=== PATIENT | female | born 1960 | race Caucasian/White ===

== ENCOUNTER 2020-03-10 19:41 | Emergency (ER) | payer MEDICARE, SELFPAY ==
[2020-03-10 19:50] VITALS: BP 141/64; PULSE 75; RESP 20; TEMP 36.6; O2SAT 94; BMI 30.2
--- NOTE | 2020-03-10 20:00 | W.ED.GENADLT ---
HPI - General Adult General: Chief complaint: General Medical Stated complaint: FLUID IN BELLY Time Seen by Provider: 03/10/20 19:50 Source: patient Mode of arrival: ambulatory Limitations: no limitations History of Present Illness: HPI narrative: 59-year-old female who has a history of cirrhosis who states she gets paracentesis every other week. She is scheduled for one on but states she want to see if she could get down here. She states she has had slight abdominal pain but denies any respiratory distress. She denies any fever. Onset (ago): day(s) Associated symptoms: Deny chest pain, dyspnea, headache(s), nausea, rash or vomiting Review of Systems Const: Denies: fever, chills, body aches or change in appetite Eyes: Denies: blurry vision or eye discomfort ENMT: Denies: throat pain or dental pain Card: Denies: chest pain Resp: Denies: shortness of breath GI: Reports: abdominal pain; Denies: nausea, vomiting or diarrhea : Denies: painful urination Musc: Denies: neck pain or back pain Skin/Breast: Denies: rash Neuro: Denies: headache Psych: Denies: depression Lc/Lymph: Denies: easy bruising All/Imm: Denies: hives PFSH ED PFSH: Social History Smoking and tobacco status: current every day smoker Physical Exam Const: COMMON NORMALS: no apparent distress, oriented x3 and healthy appearing HENMT: COMMON NORMALS: normocephalic and head/scalp atraumatic HEAD & SCALP: normocephalic and atraumatic Eye: COMMON NORMALS: PERRL and EOMs intact bilaterally PUPIL: Yes PERRL Neck/C-Spine: COMMON NORMALS: full ROM and supple Chest: COMMONS NORMALS: inspection of chest normal and palpation of chest normal Resp: COMMON NORMALS: normal respiratory effort, no retractions, no use of accessory muscles and clear to auscultation bilaterally AUSCULTATION: clear to auscultation bilaterally Cardio: COMMON NORMALS: regular rate, regular rhythm and no murmurs RATE: regular rate RHYTHM: regular rhythm GI: COMMON NORMALS: non-tender OTHER: Ascites with no tense abdomen and in no distress and no tenderness Extremity: COMMON NORMALS: normal to inspection and full ROM Neuro: COMMON NORMALS: oriented x3, moves all extremities and no focal motor deficits Psych: COMMON NORMALS: mental status grossly normal, thought process normal and cooperative THOUGHT PROCESS: normal thought process Skin: COMMON NORMALS: no rashes or lesions noted and no wounds GENERAL SKIN EXAM: no rashes or lesions noted Course Vital Signs: Vital signs: Vital Signs Temperature 97.8 F 03/10/20 19:50 Pulse Rate 75 03/10/20 19:50 Respiratory Rate 20 H 03/10/20 19:50 Blood Pressure 141/64 03/10/20 19:50 Pulse Oximetry 94 03/10/20 19:50 MDM - General Adult MDM Narrative: Medical decision making narrative: Patient presents here with ascites that is chronic in nature. She is in no distress and has no sign of SBP. I do not believe she needs an emergent paracentesis. She refused any lab draw. Patient is to follow-up with her physician on for paracentesis. She is to return if worsening. Discharge Plan Discharge Patient Disposition: Home, Self-Care Clinical Impression: Abdominal ascites Qualifiers: Ascites type: other type Qualified Code(s): R18.8 - Other ascites Condition: Stable Prescriptions: No Action nifedipine 90 mg Tablet Extended Release 90 mg PO DAILY RF: 0 metoprolol tartrate 100 mg Tablet 200 mg PO BID RF: 0 Glucosamine 500 mg Tablet 500 mg PO DAILY RF: 0 Discharge Orders: Discharge Order (Routine); Ordered 03/10/20 Ordered By: Juwan Oconnell Discharge Diet: Advance as tolerated Discharge Activity: Resume usual activity Patient Instructions: Ascites (ED) Coding Level of Care Code ED [employer] for [facility] Toro
[2020-03-10 20:09] VITALS: RESP 18
[2020-03-10] MEDS: FUROsemide 10 mg/mL SDV 10mL 60 MG IV (20:09)
[2020-03-10] MEDS: morphine 4 mg/mL SDV 1 mL IM (20:09)
[2020-03-10 20:35] VITALS: BP 136/65; PULSE 67; RESP 18; O2SAT 96
== END 2020-03-10 20:35 | disposition home or self-care (01) ==
LOC: ER 20:46
PROVIDERS: Emergency Provider Emergency Medicine
DX: R18.8 Other ascites (principal); F17.210 Nicotine dependence, cigarettes, uncomplicated
CPT/HCPCS: 12345; 96372; 96374; 99281; 99283; J1940; J2270

== ENCOUNTER 2020-03-18 10:45 | Emergency (ER) | payer MEDICARE, MEDICAID, SELFPAY ==
[2020-03-18 10:58] VITALS: BP 170/78; PULSE 71; RESP 20; TEMP 36.6; O2SAT 99; BMI 30.2
--- NOTE | 2020-03-18 11:43 | W.ED.GENADLT ---
HPI - General Adult General: Chief complaint: General Medical Stated complaint: NEEDS UNSCHEDULED PARACENTESIS Time Seen by Provider: 03/18/20 11:19 History of Present Illness: HPI narrative: 59-year-old female presents emergency room with complaint of ascites. She is scheduled in 2 days to get a paracentesis. She having increasing difficulty breathing and wanted to get it done earlier she has no chest pain. She has a history of hepatitis C and end-stage renal disease. She has not had any fever sweats chills cough cold she not had any other specific complaints or problems associated with this. Associated symptoms: Reports dyspnea; Deny chest pain, malaise, nausea, rash or vomiting Review of Systems Const: Denies: fever, chills, body aches, change in appetite, fatigue or malaise ENMT: Denies: throat pain, ear pain, nasal discharge or nasal congestion Card: Denies: chest pain, edema, shortness of breath on exertion or shortness of breath when lying down Resp: Reports: shortness of breath; Denies: productive cough or non-productive cough GI: Reports: feeling full early; Denies: abdominal pain, nausea, vomiting, vomiting blood, coffee grounds in vomit, diarrhea, constipation, bloating, blood in stool or black tarry stool : Denies: flank pain, difficulty urinating, painful urination, urinary frequency or urinary urgency Skin/Breast: Denies: rash or itching PFSH ED PFSH: Social History Smoking and tobacco status: current every day smoker Physical Exam Const: COMMON NORMALS: no apparent distress GENERAL APPEARANCE: cooperative and comfortable ORIENTATION/CONSCIOUSNESS: Yes awake, Yes oriented to person, Yes oriented to place and Yes oriented to time HENMT: COMMON NORMALS: normocephalic, head/scalp atraumatic, hearing grossly normal bilaterally, moist oral mucous membranes and oropharynx normal HEAD & SCALP: normocephalic and atraumatic Eye: COMMON NORMALS: PERRL, EOMs intact bilaterally, conjunctivae normal and no scleral icterus CONJUNCTIVA: Yes conjunctivae normal PUPIL: Yes PERRL Neck/C-Spine: COMMON NORMALS: full ROM, no lymphadenopathy, supple and no JVD Lymph: LYMPHATIC: no lymphadenopathy noted and no lymphedema noted Resp: COMMON NORMALS: normal respiratory effort, no retractions, no use of accessory muscles and clear to auscultation bilaterally AUSCULTATION: clear to auscultation bilaterally Cardio: COMMON NORMALS: no JVD, regular rate, regular rhythm and no murmurs RATE: regular rate RHYTHM: regular rhythm GI: COMMON NORMALS: soft to palpation and no hepatosplenomegaly AUSCULTATION: Yes normoactive bowel sounds PALPATION: Yes soft, No tender, No guarding, Yes no hepatosplenomegaly and Yes ascites present PERCUSSION: dullness to percussion Extremity: COMMON NORMALS: normal to inspection, normal capillary refill, no clubbing, cyanosis or edema, no calf tenderness and no pedal edema Neuro: SENSORIUM/ORIENTATION: Yes oriented to person, Yes oriented to place and Yes oriented to time Skin: COMMON NORMALS: no rashes or lesions noted GENERAL SKIN EXAM: no rashes or lesions noted Course Vital Signs: Vital signs: Vital Signs Temperature 97.8 F 03/18/20 10:58 Pulse Rate 71 03/18/20 10:58 Respiratory Rate 20 H 03/18/20 10:58 Blood Pressure 170/78 03/18/20 10:58 Pulse Oximetry 99 03/18/20 10:58 MDM - General Adult MDM Narrative: Medical decision making narrative: 2700 mL removed by ultrasound-guided paracentesis. Patient tolerated well no lightheadedness or dizziness blood pressure stable follow-up with primary care team as scheduled. Lab Data: Labs: Lab Results 03/18/20 03/18/20 03/18/20 Range/Units 11:54 11:54 11:54 WBC 4.7 (4.0-10.0) 10^3/ uL RBC 3.70 L (4.1-5.3) 10^6/u L Hgb 11.7 (11.5-15.3) g/dL Hct 35.5 L (37.0-47.0) % MCV 95.9 (81-99) fL MCH 31.6 (28.0-34.0) pg MCHC 33.0 (30.0-36.0) g/dL RDW 12.9 (12.1-15.1) % Plt Count 129 L (130-400) 10^3/c mm MPV 9.7 (7.4-10.4) fL Neut % (Auto) 71.6 % Lymph % (Auto) 18.1 % [place] % (Auto) 7.0 % Eos % (Auto) 2.3 % Baso % (Auto) 0.6 % Neut # (Auto) 3.4 (1.8-7.7) 10^3/u L Lymph # (Auto) 0.9 (0.8-4.8) 10^3/u L [place] # (Auto) 0.3 (0.2-0.9) 10^3/u L Eos # (Auto) 0.1 (0.0-0.8) 10^3/u L Baso # (Auto) 0.0 (0.0-0.1) 10^3/u L Nucleated RBC % (a uto) 0 % Nucleated RBCs # 0.0 /100WBC PT 13.70 H (10.5-13.3) SECO NDS INR 1.05 (0.8-1.2) APTT 28.7 (23.9-36.7) SECO NDS Sodium 126 L (136-145) mmol/L Potassium 5.2 H (3.5-5.1) mmol/L Chloride 81 L (98-107) mmol/L Carbon Dioxide 30 H (22-29) mmol/L Anion Gap 20.2 H (5-19) BUN 25 H (6-20) mg/dL Creatinine 5.2 H (0.5-0.9) mg/dL GFR Calculation 8.5 L (90-130) mL/min Glucose 86 (65-115) mg/dL Calculated Osmolal ity 258 L (285-295) mOsm/k g Calcium 8.6 (8.5-10.5) mg/dL Total Bilirubin 0.3 (0.15-1.2) mg/dL AST 38 H (0-32) U/L ALT 31 (0-33) U/L Alkaline Phosphata se 119 H (35-105) IU/L Total Protein 6.9 (6.6-8.7) g/dL Albumin 4.4 (3.5-5.2) g/dL Globulin 2.5 (1.3-4.6) g/dL Discharge Plan Discharge Patient Disposition: Home, Self-Care Clinical Impression: Ascites, Hepatic cirrhosis, Hep C w/o coma, chronic Condition: Stable Prescriptions: No Action nifedipine 90 mg Tablet Extended Release 90 mg PO DAILY RF: 0 metoprolol tartrate 100 mg Tablet 200 mg PO DAILY RF: 0 glucosamine sulfate [Glucosamine] 500 mg Tablet 500 mg PO DAILY RF: 0 ergocalciferol (vitamin D2) 1,250 mcg (50,000 unit) Capsule 1,250 mcg PO DAILY RF: 0 Renvela 800 mg Tablet 800 mg PO TID RF: 0 alpha lipoic acid 100 mg Capsule 100 mg PO DAILY RF: 0 Discharge Orders: Discharge Order (Routine); Ordered 03/18/20 Ordered By: Derek Mejia Discharge Diet: Usual diet Discharge Activity: Resume usual activity Coding Level of Care Code ED Store Operations Associate for [facility] Toro
--- NOTE | 2020-03-18 11:47 | US_ITS ---
WS: [id number] ULTRASOUND-GUIDED THERAPEUTIC PARACENTESIS Procedure, risks, and complications have been explained to the patient. Consent is obtained. Utilizing aseptic technique and 1% buffered lidocaine, a small dermatome was made through which a 5 F rench Yueh catheter was inserted. Approximately 2700 ml of clear peritoneal fluid was obtained witho ut difficulty. No complications encountered. US/US paracentesis abd w [id number] IMPRESSION: Uncomplicated paracentesis yielding 2700 ml of peritoneal fluid.
[2020-03-18 12:03] LABS: Basophils % 0.6 %; Eosinophils # 0.1 10^3/uL (0.0-0.8); Eosinophils % 2.3 %; Hematocrit 35.5 % (37.0-47.0); Hemoglobin 11.7 g/dL (11.5-15.3); Lymphocytes # 0.9 10^3/uL (0.8-4.8); Lymphocytes % 18.1 %; Mean Corpuscular Hemoglobin 31.6 pg (28.0-34.0); Mean Corpuscular Volume 95.9 fL (81-99); Mean Platelet Volume 9.7 fL (7.4-10.4); Monocytes # 0.3 10^3/uL (0.2-0.9); Neutrophils # 3.4 10^3/uL (1.8-7.7); Neutrophils % 71.6 %; Nucleated Red Blood Cells % 0 %; Platelet Count 129 10^3/cmm (130-400); Red Cell Distribution Width 12.9 % (12.1-15.1); White Blood Count 4.7 10^3/uL (4.0-10.0)
[2020-03-18 12:15] LABS: Alanine Aminotransferase 31 U/L (0-33); Albumin Level 4.4 g/dL (3.5-5.2); Alkaline Phosphatase 119 IU/L (35-105); Anion Gap 20.2 (5-19); Aspartate Amino Transferase 38 U/L (0-32); Blood Urea Nitrogen 25 mg/dL (6-20); Calcium 8.6 mg/dL (8.5-10.5); Carbon Dioxide 30 mmol/L (22-29); Chloride 81 mmol/L (98-107); Globulin 2.5 g/dL (1.3-4.6); Glomerular Filtration Rate 8.5 mL/min (90-130); Glucose 86 mg/dL (65-115); Osmolality Calculated 258 mOsm/kg (285-295); Potassium 5.2 mmol/L (3.5-5.1); Sodium 126 mmol/L (136-145); Total Bilirubin 0.3 mg/dL (0.15-1.2); Total Protein 6.9 g/dL (6.6-8.7)
--- NOTE | 2020-03-18 12:15 | PC.NURSE ---
Read and agree with assessment
[2020-03-18 12:29] LABS: INR 1.05 (0.8-1.2); Partial Thromboplastin Time 28.7 SECONDS (23.9-36.7)
[2020-03-18 13:24] VITALS: BP 170/85; PULSE 75; RESP 16; O2SAT 97
== END 2020-03-18 13:25 | disposition home or self-care (01) ==
PROVIDERS: Emergency Provider Family Medicine
DX: K74.60 Unspecified cirrhosis of liver (principal); R18.8 Other ascites; B18.2 Chronic viral hepatitis C; F17.210 Nicotine dependence, cigarettes, uncomplicated
CPT/HCPCS: 12345; 49083; 80053; 85025; 85610; 85730; 99281; 99284

== ENCOUNTER 2020-03-20 10:11 | Outpatient (CLI) | payer MEDICARE, MEDICAID, SELFPAY ==
--- NOTE | 2020-03-20 10:12 | US_ITS ---
WS: [id number] ULTRASOUND-GUIDED THERAPEUTIC PARACENTESIS Procedure, risks, and complications have been explained to the patient. Consent is obtained. Utilizing aseptic technique and 1% buffered lidocaine, a small dermatome was made through which a 5 F rench Yueh catheter was inserted. Approximately 2250 ml of clear peritoneal fluid was obtained witho ut difficulty. No complications encountered. US/US paracentesis abd w [id number] IMPRESSION: Uncomplicated paracentesis yielding 2250 ml of peritoneal fluid.
[2020-03-20 10:15] VITALS: BP 143/73; PULSE 78; RESP 18; TEMP 36.9; O2SAT 95
== END 2020-03-20 10:12 | disposition home or self-care (01) ==
PROVIDERS: Visit Provider Internal Medicine Nephrology
DX: R18.8 Other ascites (principal)
CPT/HCPCS: 49083

== ENCOUNTER 2020-03-25 11:29 | Emergency (ER) | payer MEDICARE, MEDICAID, SELFPAY ==
[2020-03-25 11:36] VITALS: BP 212/84; PULSE 69; RESP 14; TEMP 36.1; O2SAT 96; BMI 30.2
--- NOTE | 2020-03-25 13:14 | PC.NURSE ---
Patient requesting oxygen. POX 100% on room air. Patient repositioned for comfort.
--- NOTE | 2020-03-25 13:21 | US_ITS ---
WS: [id number] ULTRASOUND-GUIDED PARACENTESIS CLINICAL INFORMATION: ascites secodnary to liver failure COMPARISON: None. Procedure Informed consent: The risks, benefits, and alternatives of the procedure were discussed with the darnell ent. Verbal and written consent was obtained. Timeout: A timeout was performed to confirm the correct patient, procedure, and site. Preparation: A suitable skin site was identified. The patient was prepped and draped in usual sterile fashion. Lidocaine 1% was used for local anesthesia. Catheter: 4 Turkish One-step Yueh catheter. Side: Left Lower quadrant. Fluid Volume: 4000 ml Color: Hank DISPOSITION: Discarded safely. Complications: None. Patient disposition: Discharged from the department in stable condition. US/US paracentesis abd w [id number] IMPRESSION: 1. Uncomplicated ultrasound-guided paracentesis. 2. Removal of 4000 cc hank-colored ascites
--- NOTE | 2020-03-25 13:22 | W.ED.ABDPA2 ---
HPI - Abdominal Pain General: Chief Complaint: Abdominal Pain Stated Complaint: requesting paracentesis Time Seen by Provider: 03/25/20 12:29 History of Present Illness: HPI narrative: 89-year-old female presents to the emergency room with complaints of abdominal swelling and discomfort making it difficult to breathe. She has liver failure and has had multiple paracentesis she had to last week alone. She has not been scheduled for regular paracentesis at this point she came in today because she is wanting to be drained again. MD elicited complaint: other (Ascites, liver failure) Pertinent past history: other (Hepatic failure) Onset (ago): month(s) Severity: moderate Quality: fullness Radiation: none Migration to: no migration Relieving factors: rest Associated Symptoms: Reports anorexia and bloating; Denies chills, dysuria, fever(s) and vomiting Review of Systems Const: Denies: fever(s), chills, body aches, change in appetite, fatigue or malaise ENMT: Denies: throat pain, ear or mastoid pain, nasal discharge or nasal congestion Card: Denies: chest pain, edema, dyspnea on exertion or orthopnea Resp: Denies: dyspnea, productive cough or non-productive cough GI: Reports: bloating; Denies: vomiting : Denies: flank pain, difficulty voiding, dysuria, urinary frequency or urinary urgency Skin/Breast: Denies: rash or pruritus PFSH ED PFSH: Medical History (Updated 03/26/20 @ 00:00 by ) Ascites Hep C w/o coma, chronic Hepatic cirrhosis Social History Smoking and tobacco status: current every day smoker Physical Exam Const: COMMON NORMALS: no acute distress GENERAL APPEARANCE: cooperative and comfortable ORIENTATION/CONSCIOUSNESS: Yes awake, Yes oriented to person, Yes oriented to place and Yes oriented to time HENMT: COMMON NORMALS: normocephalic, atraumatic, hearing grossly normal bilaterally, external ears normal, EAC's normal, TM's normal bilaterally, Normal nasal mucous membranes and turbinates present, moist oral mucous membranes and oropharynx normal HEAD & SCALP: normocephalic and atraumatic NOSE: Normal nasal mucous membranes and turbinates present EXTERNAL EAR: Yes external ears normal EXTERNAL AUDITORY CANAL: EAC's normal TYMPANIC MEMBRANE: TM's normal bilaterally Eye: COMMON NORMALS: Equal, round and reactive pupils present, EOMs intact bilaterally, conjunctivae normal and no scleral icterus CONJUNCTIVA: Yes conjunctivae normal PUPIL: Yes Equal, round and reactive pupils present Neck/C-Spine: COMMON NORMALS: full ROM, no lymphadenopathy, supple and no JVD Lymph: LYMPHATIC: no lymphadenopathy noted and no lymphedema noted Resp: COMMON NORMALS: normal respiratory effort, No retractions, No use of accessory muscles and clear to auscultation bilaterally AUSCULTATION: clear to auscultation bilaterally Cardio: COMMON NORMALS: no JVD, regular rate, regular rhythm and No murmurs present (Cardio) RATE: regular rate RHYTHM: regular rhythm GI: COMMON NORMALS: Soft to palpation and No hepatosplenomegaly present INSPECTION: Yes abdominal distension AUSCULTATION: Yes normoactive bowel sounds PALPATION: Yes Soft to palpation, No Tenderness to palpation present (GI), No Guarding due to palpation present (GI), Yes No hepatosplenomegaly present and Yes Ascites present Extremity: COMMON NORMALS: normal to inspection, capillary refill normal, no clubbing, cyanosis or edema, no calf tenderness and no pedal edema Neuro: SENSORIUM/ORIENTATION: Yes oriented to person, Yes oriented to place and Yes oriented to time Skin: COMMON NORMALS: no rashes or lesions noted GENERAL SKIN EXAM: no rashes or lesions noted Course Vital Signs: Vital signs: Vital Signs Temperature 96.9 F L 03/25/20 11:36 Pulse Rate 75 03/25/20 16:02 Respiratory Rate 16 03/25/20 16:02 Blood Pressure 128/73 03/25/20 16:02 Pulse Oximetry 100 03/25/20 16:02 MDM - Abdominal Pain MDM Narrative: Medical decision making narrative: Patient improved after paracentesis removed approximately 4000 mL. Strongly recommend follow-up with her primary care to set up outpatient scheduled paracentesis Lab Data: Labs: Lab Results 03/25/20 03/25/20 03/25/20 Range/Units 13:30 13:30 13:30 WBC 4.0 (4.0-10.0) 10^3/ uL RBC 3.42 L (4.1-5.3) 10^6/u L Hgb 10.8 L (11.5-15.3) g/dL Hct 33.7 L (37.0-47.0) % MCV 98.5 (81-99) fL MCH 31.6 (28.0-34.0) pg MCHC 32.0 (30.0-36.0) g/dL RDW 13.2 (12.1-15.1) % Plt Count 113 L (130-400) 10^3/c mm MPV 10.2 (7.4-10.4) fL Neut % (Auto) 65.4 % Lymph % (Auto) 22.4 % [place] % (Auto) 8.8 % Eos % (Auto) 2.3 % Baso % (Auto) 0.8 % Neut # (Auto) 2.6 (1.8-7.7) 10^3/u L Lymph # (Auto) 0.9 (0.8-4.8) 10^3/u L [place] # (Auto) 0.4 (0.2-0.9) 10^3/u L Eos # (Auto) 0.1 (0.0-0.8) 10^3/u L Baso # (Auto) 0.0 (0.0-0.1) 10^3/u L Nucleated RBC % (a uto) 0 % Nucleated RBCs # 0.0 /100WBC PT 13.50 H (10.5-13.3) SECO NDS INR 1.00 (0.8-1.2) APTT 27.5 (23.9-36.7) SECO NDS Sodium 128 L (136-145) mmol/L Potassium 5.5 H (3.5-5.1) mmol/L Chloride 86 L (98-107) mmol/L Carbon Dioxide 28 (22-29) mmol/L Anion Gap 19.5 H (5-19) BUN 31 H (6-20) mg/dL Creatinine 5.2 H (0.5-0.9) mg/dL GFR Calculation 8.5 L (90-130) mL/min Glucose 85 (65-115) mg/dL Calculated Osmolal ity 262 L (285-295) mOsm/k g Calcium 8.6 (8.5-10.5) mg/dL Total Bilirubin 0.3 (0.15-1.2) mg/dL AST 40 H (0-32) U/L ALT 29 (0-33) U/L Alkaline Phosphata se 136 H (35-105) IU/L Total Protein 6.7 (6.6-8.7) g/dL Albumin 3.9 (3.5-5.2) g/dL Globulin 2.8 (1.3-4.6) g/dL Discharge Plan Discharge Patient Disposition: Home, Self-Care Clinical Impression: Ascites, Hepatic cirrhosis, Hep C w/o coma, chronic Condition: Stable Prescriptions: No Action Xanax 0.25 mg Tablet 0.25 mg PO BID PRN (Reason: Anxiety) RF: 0 pantoprazole 40 mg Tablet,Delayed Release (Dr/Ec) 40 mg PO DAILY RF: 0 Auryxia 210 mg iron Tablet 420 mg PO TID RF: 0 nifedipine 90 mg Tablet Extended Release 90 mg PO DAILY RF: 0 metoprolol tartrate 100 mg Tablet 200 mg PO BID RF: 0 glucosamine sulfate [Glucosamine] 500 mg Tablet 500 mg PO DAILY RF: 0 ergocalciferol (vitamin D2) 1,250 mcg (50,000 unit) Capsule 1,250 mcg PO DAILY RF: 0 sevelamer carbonate [Renvela] 800 mg Tablet 800 mg PO TID RF: 0 alpha lipoic acid 100 mg Capsule 100 mg PO DAILY RF: 0 Discharge Diet: Usual diet Discharge Activity: Resume usual activity Activity Restrictions/Additional Instructions: Recommend that you follow-up with your primary care doctor. Future paracentesis should be done on a scheduled basis and outpatients. Discharge Date/Time: 03/25/20 16:03 Coding Level of Care Code ED Shared Services Representative for Tao Fwd Exam Comprehensive
[2020-03-25 13:40] LABS: Basophils % 0.8 %; Eosinophils # 0.1 10^3/uL (0.0-0.8); Eosinophils % 2.3 %; Hematocrit 33.7 % (37.0-47.0); Hemoglobin 10.8 g/dL (11.5-15.3); Lymphocytes # 0.9 10^3/uL (0.8-4.8); Lymphocytes % 22.4 %; Mean Corpuscular Hemoglobin 31.6 pg (28.0-34.0); Mean Corpuscular Volume 98.5 fL (81-99); Mean Platelet Volume 10.2 fL (7.4-10.4); Monocytes # 0.4 10^3/uL (0.2-0.9); Monocytes % 8.8 %; Neutrophils # 2.6 10^3/uL (1.8-7.7); Neutrophils % 65.4 %; Nucleated Red Blood Cells % 0 %; Platelet Count 113 10^3/cmm (130-400); Red Blood Count 3.42 10^6/uL (4.1-5.3); Red Cell Distribution Width 13.2 % (12.1-15.1)
[2020-03-25 13:52] LABS: Partial Thromboplastin Time 27.5 SECONDS (23.9-36.7)
[2020-03-25 14:00] LABS: Alanine Aminotransferase 29 U/L (0-33); Albumin Level 3.9 g/dL (3.5-5.2); Alkaline Phosphatase 136 IU/L (35-105); Anion Gap 19.5 (5-19); Aspartate Amino Transferase 40 U/L (0-32); Blood Urea Nitrogen 31 mg/dL (6-20); Calcium 8.6 mg/dL (8.5-10.5); Carbon Dioxide 28 mmol/L (22-29); Chloride 86 mmol/L (98-107); Globulin 2.8 g/dL (1.3-4.6); Glomerular Filtration Rate 8.5 mL/min (90-130); Glucose 85 mg/dL (65-115); Osmolality Calculated 262 mOsm/kg (285-295); Potassium 5.5 mmol/L (3.5-5.1); Sodium 128 mmol/L (136-145); Total Bilirubin 0.3 mg/dL (0.15-1.2); Total Protein 6.7 g/dL (6.6-8.7)
[2020-03-25 16:02] VITALS: BP 128/73; PULSE 75; RESP 16; O2SAT 100
== END 2020-03-25 16:03 | disposition home or self-care (01) ==
PROVIDERS: Emergency Provider Family Medicine
DX: K74.60 Unspecified cirrhosis of liver (principal); R18.8 Other ascites; B18.2 Chronic viral hepatitis C; F17.210 Nicotine dependence, cigarettes, uncomplicated
CPT/HCPCS: 12345; 36415; 49083; 80053; 85025; 85610; 85730; 99281; 99283

== ENCOUNTER 2020-04-01 07:24 | Outpatient (CLI) | payer MEDICARE, MEDICAID, SELFPAY ==
--- NOTE | 2020-04-01 07:34 | US_ITS ---
WS: [id number] ULTRASOUND-GUIDED THERAPEUTIC PARACENTESIS Procedure, risks, and complications have been explained to the patient. Consent is obtained. Utilizing aseptic technique and 1% buffered lidocaine, a small dermatome was made through which a 5 F rench Yueh catheter was inserted. Approximately 4000 ml of clear peritoneal fluid was obtained witho ut difficulty. No complications encountered. US/US paracentesis abd w [id number] IMPRESSION: Uncomplicated paracentesis yielding 4000 ml of peritoneal fluid.
[2020-04-01 08:20] VITALS: BP 142/78; PULSE 82; RESP 18; TEMP 36.3
== END 2020-04-01 07:25 | disposition home or self-care (01) ==
PROVIDERS: PCP Family Medicine; Visit Provider Internal Medicine Nephrology
DX: K74.60 Unspecified cirrhosis of liver (principal); R18.8 Other ascites; B19.20 Unspecified viral hepatitis C without hepatic coma
CPT/HCPCS: 49083; 96365; P9047

== ENCOUNTER → 2020-04-10 07:10 | Day surgery (SDC) | payer MEDICARE, MEDICAID, SELFPAY ==
--- NOTE | 2020-04-10 | US_ITS ---
WS: [id number] ULTRASOUND-GUIDED THERAPEUTIC PARACENTESIS Procedure, risks, and complications have been explained to the patient. Consent is obtained. Utilizing aseptic technique and 1% buffered lidocaine, a small dermatome was made through which a 5 F rench Yueh catheter was inserted. Approximately 4000 ml of clear peritoneal fluid was obtained witho ut difficulty. No complications encountered. US/US paracentesis abd w [id number] IMPRESSION: Uncomplicated paracentesis yielding 4000 ml of peritoneal fluid.
[2020-04-10 06:25] VITALS: BP 185/86; PULSE 71; RESP 18; TEMP 36.7; O2SAT 94
--- NOTE | 2020-04-10 13:20 | PC.NURSE ---
Per the patient her port is to be flushed with 20 ml normal saline after each use. I asked her to repeat her flushing protocol and 20 ml normal saline was confirmed. The port was accessed using sterile technique.
== END ==
PROVIDERS: PCP Family Medicine; Visit Provider Internal Medicine Nephrology
DX: R18.8 Other ascites (principal); B18.2 Chronic viral hepatitis C; K74.60 Unspecified cirrhosis of liver
CPT/HCPCS: 49083; 96365; P9047

== ENCOUNTER 2020-04-15 10:39 | Outpatient (CLI) | payer MEDICARE, MEDICAID, SELFPAY ==
[2020-04-15 11:05] VITALS: BP 157/87; PULSE 81; RESP 18; TEMP 37.1; O2SAT 93
--- NOTE | 2020-04-15 11:05 | US_ITS ---
WS: [id number] ULTRASOUND-GUIDED THERAPEUTIC PARACENTESIS Procedure, risks, and complications have been explained to the patient. Consent is obtained. Utilizing aseptic technique and 1% buffered lidocaine, a small dermatome was made through which a 5 F rench Yueh catheter was inserted. Approximately 3000 ml of tea colored peritoneal fluid was obtained without difficulty. No complications encountered. US/US paracentesis abd w [id number] IMPRESSION: Uncomplicated paracentesis yielding 3000 ml of peritoneal fluid.
== END 2020-04-15 10:40 | disposition home or self-care (01) ==
LOC: RAD 10:42
PROVIDERS: PCP Family Medicine; Visit Provider Internal Medicine Nephrology
DX: B18.2 Chronic viral hepatitis C (principal); R18.8 Other ascites; K74.60 Unspecified cirrhosis of liver
CPT/HCPCS: 49083; 96365; P9047

== ENCOUNTER 2020-04-21 10:58 | Emergency (ER) | payer MEDICARE, MEDICAID, SELFPAY ==
[2020-04-21 11:14] VITALS: BP 196/75; PULSE 81; RESP 20; TEMP 36.7; O2SAT 94; BMI 30.2
--- NOTE | 2020-04-21 11:29 | W.ED.GENADLT ---
HPI - General Adult General: Chief complaint: General Medical Stated complaint: NEEDS ABD DRAINED Time Seen by Provider: 04/21/20 11:22 Source: patient Mode of arrival: ambulatory Limitations: no limitations History of Present Illness: HPI narrative: 59-year-old female with a history of cirrhosis and ascites states she had a paracentesis last Tuesday and has had increased fluid in her abdomen and feels like she may need drained. She denies any pain currently and denies any shortness of breath. She has had no fevers. She denies any worsening or improving factors. Onset (ago): day(s) Associated symptoms: Deny chest pain, dyspnea, headache(s) or rash Review of Systems Const: Denies: fever(s), chills, body aches or change in appetite Eyes: Denies: blurry vision or eye discomfort ENMT: Denies: throat pain or dental pain Card: Denies: chest pain Resp: Denies: dyspnea GI: Reports: abdominal pain : Denies: dysuria Musc: Denies: neck pain or back pain Skin/Breast: Denies: rash Neuro: Denies: headache(s) Psych: Denies: depression Lc/Lymph: Denies: easy bruising All/Imm: Denies: urticaria PFSH ED PFSH: Medical History Ascites Hep C w/o coma, chronic Hepatic cirrhosis Social History Smoking and tobacco status: current every day smoker Physical Exam Const: COMMON NORMALS: no acute distress, patient oriented x3 and healthy appearing HENMT: COMMON NORMALS: normocephalic and atraumatic HEAD & SCALP: normocephalic and atraumatic Eye: COMMON NORMALS: Equal, round and reactive pupils present and EOMs intact bilaterally PUPIL: Yes Equal, round and reactive pupils present Neck/C-Spine: COMMON NORMALS: full ROM and supple Chest: COMMONS NORMALS: normal inspection of the chest and normal palpation of entire chest wall Resp: COMMON NORMALS: normal respiratory effort, No retractions, No use of accessory muscles and clear to auscultation bilaterally AUSCULTATION: clear to auscultation bilaterally Cardio: COMMON NORMALS: regular rate, regular rhythm and No murmurs present (Cardio) RATE: regular rate RHYTHM: regular rhythm GI: COMMON NORMALS: Soft to palpation, non-tender and no masses PALPATION: Yes Soft to palpation OTHER: Distended abdomen with no tenderness Extremity: COMMON NORMALS: normal to inspection and full ROM Neuro: COMMON NORMALS: patient oriented x3, moves all extremities and no focal motor deficits Psych: COMMON NORMALS: mental status grossly normal, Normal thought process present and cooperative THOUGHT PROCESS: Normal thought process present Skin: COMMON NORMALS: no rashes or lesions noted and no wounds GENERAL SKIN EXAM: no rashes or lesions noted Course Vital Signs: Vital signs: Vital Signs Temperature 98.1 F 04/21/20 11:14 Pulse Rate 81 04/21/20 11:14 Respiratory Rate 20 H 04/21/20 11:14 Blood Pressure 196/75 04/21/20 11:14 Pulse Oximetry 94 04/21/20 11:14 MDM - General Adult MDM Narrative: Medical decision making narrative: Patient presents here with ascites with no other complaints. She has no signs of spontaneous bacterial peritonitis. Abdominal exam is benign. Did speak to radiologist here currently and he is not credentialed to do paracentesis as he is a locum's. Will have case management set up for outpatient paracentesis in 1 to 2 days. Patient is stable for discharge at this time. Discharge Plan Discharge Patient Disposition: Home, Self-Care Clinical Impression: Abdominal ascites Qualifiers: Ascites type: other type Qualified Code(s): R18.8 - Other ascites Condition: Stable Prescriptions: No Action alprazolam [Xanax] 0.25 mg Tablet 0.25 mg PO BID PRN (Reason: Anxiety) RF: 0 pantoprazole 40 mg Tablet,Delayed Release (Dr/Ec) 40 mg PO DAILY RF: 0 Auryxia 210 mg iron Tablet 420 mg PO TID RF: 0 nifedipine 90 mg Tablet Extended Release 90 mg PO DAILY RF: 0 metoprolol tartrate 100 mg Tablet 200 mg PO BID RF: 0 glucosamine sulfate [Glucosamine] 500 mg Tablet 500 mg PO DAILY RF: 0 ergocalciferol (vitamin D2) 1,250 mcg (50,000 unit) Capsule 1,250 mcg PO DAILY RF: 0 sevelamer carbonate [Renvela] 800 mg Tablet 800 mg PO TID RF: 0 alpha lipoic acid 100 mg Capsule 100 mg PO DAILY RF: 0 Discharge Orders: Discharge Order (Routine); Ordered 04/21/20 Ordered By: Juwan Oconnell Referrals: Rose Marie Riojas DO [Primary Care Provider] - Discharge Diet: Advance as tolerated Discharge Activity: Resume usual activity Patient Instructions: Ascites (ED) Coding Level of Care Code ED Business Objects Analyst for Chg Fwd Exam Comprehensive
== END 2020-04-21 12:00 | disposition home or self-care (01) ==
PROVIDERS: Emergency Provider Emergency Medicine; PCP Family Medicine
DX: R18.8 Other ascites (principal); Z86.19 Personal history of other infectious and parasitic diseases; F17.210 Nicotine dependence, cigarettes, uncomplicated
CPT/HCPCS: 12345; 99281

== ENCOUNTER 2020-04-22 09:14 | Outpatient (CLI) | payer MEDICARE, MEDICAID, SELFPAY ==
--- NOTE | 2020-04-22 | US_ITS ---
WS: [id number] ULTRASOUND-GUIDED PARACENTESIS CLINICAL INFORMATION: ASCITES COMPARISON: None. Procedure Informed consent: The risks, benefits, and alternatives of the procedure were discussed with the darnell ent. Verbal and written consent was obtained. Timeout: A timeout was performed to confirm the correct patient, procedure, and site. Preparation: A suitable skin site was identified. The patient was prepped and draped in usual sterile fashion. Lidocaine 1% was used for local anesthesia. Catheter: 4 [place] One-step Yueh catheter. Side: Left Lower quadrant. Fluid Volume: 4200 ml Color: Berta DISPOSITION: Discarded safely. Complications: None. Patient disposition: Discharged from the department in stable condition. US/US paracentesis abd w [id number] IMPRESSION: 1. Uncomplicated ultrasound-guided paracentesis. 2. Removal of 4200 cc
[2020-04-22 10:09] VITALS: BP 164/103; PULSE 74; RESP 20; TEMP 36.5; O2SAT 99
[2020-04-22 10:29] VITALS: BMI 29.8
[2020-04-22 11:33] VITALS: BP 180/78; PULSE 78; RESP 18; TEMP 36.6; O2SAT 98
== END 2020-04-22 12:20 | disposition home or self-care (01) ==
LOC: CCL 09:24 → OPS 09:29
PROVIDERS: PCP Family Medicine; Visit Provider Internal Medicine Nephrology
DX: R18.8 Other ascites (principal)
CPT/HCPCS: 49083; 96365; 96366; J1642; P9047

== ENCOUNTER 2020-04-29 08:22 | Outpatient (CLI) | payer MEDICARE, MEDICAID, SELFPAY ==
--- NOTE | 2020-04-29 | US_ITS ---
WS: [id number] ULTRASOUND-GUIDED THERAPEUTIC PARACENTESIS Procedure, risks, and complications have been explained to the patient. Consent is obtained. Utilizing aseptic technique and 1% buffered lidocaine, a small dermatome was made through which a 5 F rench Yueh catheter was inserted. Approximately 3700 ml of clear peritoneal fluid was obtained witho ut difficulty. No complications encountered. US/US paracentesis abd w [id number] IMPRESSION: Uncomplicated paracentesis yielding 3700 ml of peritoneal fluid.
[2020-04-29 09:11] VITALS: BP 184/72; PULSE 92; RESP 20; TEMP 36.6; O2SAT 98
--- NOTE | 2020-04-29 10:13 | SUR.OPER ---
LEFT SUBCLAVIAN INFUSER PORT ACCESSED USING STERILE TECHNIQUE, PER HOSPITAL PROTOCOL. GOOD BLOOD RETURN.
[2020-04-29 11:13] VITALS: BP 198/83; PULSE 78; RESP 18; TEMP 36.6; O2SAT 98
== END 2020-04-29 08:23 | disposition home or self-care (01) ==
LOC: CCL 08:24
PROVIDERS: PCP Family Medicine; Visit Provider Internal Medicine Nephrology
DX: B19.20 Unspecified viral hepatitis C without hepatic coma (principal); R18.8 Other ascites; K74.60 Unspecified cirrhosis of liver
CPT/HCPCS: 49083; J1642; P9047

== ENCOUNTER 2020-05-06 08:05 | Outpatient (CLI) | payer MEDICARE, MEDICAID, SELFPAY ==
--- NOTE | 2020-05-06 08:38 | US_ITS ---
WS: [id number] ULTRASOUND-GUIDED PARACENTESIS CLINICAL INFORMATION: ascities COMPARISON: None. Procedure Informed consent: The risks, benefits, and alternatives of the procedure were discussed with the darnell ent. Verbal and written consent was obtained. Timeout: A timeout was performed to confirm the correct patient, procedure, and site. Preparation: A suitable skin site was identified. The patient was prepped and draped in usual sterile fashion. Lidocaine 1% was used for local anesthesia. Catheter: 4 English One-step Yueh catheter. Side: Left Lower quadrant. Fluid Volume: 3000 ml Color: Clear hank DISPOSITION: Discarded safely. Complications: None. US/US paracentesis abd w [id number] IMPRESSION: Uncomplicated ultrasound-guided paracentesis. Removal of 3000 cc
[2020-05-06 08:40] VITALS: BP 198/89; PULSE 79; RESP 18; TEMP 36.5; O2SAT 97; BMI 29.8
== END 2020-05-06 08:06 | disposition home or self-care (01) ==
LOC: RAD 08:11
PROVIDERS: PCP Family Medicine; Visit Provider Internal Medicine Nephrology
DX: R18.8 Other ascites (principal); B18.2 Chronic viral hepatitis C; K74.60 Unspecified cirrhosis of liver
CPT/HCPCS: 49083; 96365; J1642; P9047

== ENCOUNTER 2020-05-13 08:39 | Outpatient (CLI) | payer MEDICARE, MEDICAID, SELFPAY ==
[2020-05-13 09:40] VITALS: BP 201/98; PULSE 77; RESP 20; TEMP 36.7; O2SAT 98
--- NOTE | 2020-05-13 09:41 | US_ITS ---
WS: [id number] ULTRASOUND-GUIDED THERAPEUTIC PARACENTESIS Procedure, risks, and complications have been explained to the patient. Consent is obtained. Utilizing aseptic technique and 1% buffered lidocaine, a small dermatome was made through which a 5 F rench Yueh catheter was inserted. Approximately 4300 ml of clear peritoneal fluid was obtained witho ut difficulty. No complications encountered. US/[place] paracentesis abd w [id number] IMPRESSION: Uncomplicated paracentesis yielding 4300 ml of peritoneal fluid.
[2020-05-13 10:20] VITALS: BMI 30.9
[2020-05-13 10:44] VITALS: BP 191/76; PULSE 72; RESP 20; TEMP 36.4; O2SAT 98
== END 2020-05-13 08:40 | disposition home or self-care (01) ==
LOC: RAD 08:42
PROVIDERS: PCP Family Medicine; Visit Provider Internal Medicine Nephrology
DX: B18.2 Chronic viral hepatitis C (principal); R18.8 Other ascites; K74.60 Unspecified cirrhosis of liver
CPT/HCPCS: 49083; 96365; 96367; J1642; P9047

== ENCOUNTER 2020-05-15 09:57 | Observation (INO) | payer MEDICARE, MEDICAID, SELFPAY ==
[2020-05-15] VITALS (8 sets, daily range): BP systolic 148–171; BP diastolic 69–74; PULSE 0–77; RESP 0–18; TEMP -17.7–36.7; O2SAT 65–99; BMI 29.8
--- NOTE | 2020-05-15 11:37 | W.ED.ABDPA2 ---
HPI - Abdominal Pain General: Chief Complaint: Abdominal Pain Stated Complaint: SOB Time Seen by Provider: 05/15/20 11:27 History of Present Illness: HPI narrative: 59-year-old female presents the emergency room with complaints of shortness of breath. She has severe ascites she was treated with a paracentesis therapeutically 2 days ago returns again complaining of shortness of breath she has an abdominal wall hernia which is been chronic which she is concerned about is not particularly painful at this time. Her biggest complaint now is her shortness of breath and abdominal fullness she is helping give another paracentesis this morning. She is concerned about her abdominal wall hernia says that no one will address that she seen several surgeons because of her ascites is really not amenable to any kind of surgical repair she recurs with her ascites so quickly. Associated Symptoms: Reports nausea; Denies bloating, chills, coffee ground emesis, constipation, diarrhea, dysuria, fever(s), hematochezia, hematemesis, melena and vomiting Review of Systems Const: Denies: fever(s), chills, body aches, change in appetite, fatigue or malaise ENMT: Denies: throat pain, ear or mastoid pain, nasal discharge or nasal congestion Card: Reports: edema and dyspnea on exertion; Denies: chest pain or orthopnea Resp: Denies: dyspnea, productive cough or non-productive cough GI: Reports: abdominal pain and nausea; Denies: vomiting, hematemesis, coffee ground emesis, diarrhea, constipation, bloating, hematochezia or melena : Denies: flank pain, difficulty voiding, dysuria, urinary frequency or urinary urgency Skin/Breast: Denies: rash or pruritus [facility] ED PFSH: Medical History (Updated 05/26/20 @ 07:11 by Derek Mejia DO) Anxiety and depression Arteriovenous fistula for hemodialysis in place, primary Ascites CAD (coronary artery disease) COPD (chronic obstructive pulmonary disease) End stage renal disease on dialysis GERD (gastroesophageal reflux disease) Hep C w/o coma, chronic Hepatic cirrhosis Hepatitis C History of abdominal paracentesis Liver cirrhosis Surgical History (Updated 05/15/20 @ 15:11 by Matt Cotton MD) H/O: hysterectomy Family History (Updated 05/15/20 @ 15:11 by Matt Cotton MD) Other CAD (coronary artery disease) Diabetes Social History Smoking and tobacco status: current every day smoker Physical Exam Const: COMMON NORMALS: no acute distress GENERAL APPEARANCE: cooperative and comfortable ORIENTATION/CONSCIOUSNESS: Yes awake, Yes oriented to person, Yes oriented to place and Yes oriented to time Eye: COMMON NORMALS: Equal, round and reactive pupils present, EOMs intact bilaterally, conjunctivae normal and no scleral icterus CONJUNCTIVA: Yes conjunctivae normal PUPIL: Yes Equal, round and reactive pupils present Neck/C-Spine: COMMON NORMALS: full ROM, no lymphadenopathy, supple and no JVD Lymph: LYMPHATIC: no lymphadenopathy noted and no lymphedema noted Resp: COMMON NORMALS: normal respiratory effort, No retractions, No use of accessory muscles and clear to auscultation bilaterally AUSCULTATION: clear to auscultation bilaterally Cardio: COMMON NORMALS: no JVD, regular rate, regular rhythm and No murmurs present (Cardio) RATE: regular rate RHYTHM: regular rhythm GI: INSPECTION: Yes abdominal distension, Yes visible peristalsis and Yes Fluid wave present AUSCULTATION: Yes normoactive bowel sounds PALPATION: No Tenderness to palpation present (GI) and No Guarding due to palpation present (GI) PERCUSSION: Fluid wave present OTHER: Patient does have a ventral hernia but is easily reducible little bit of an umbilical hernia as well, that is not incarcerated. At this point there is really not anything to do these especially given her extreme ascites. We will have radiology evaluate for possible therapeutic paracentesis today we can refer to surgery as an outpatient later date. However given her ascites I think she is correct that no surgeon will be interested in repairing the hernia. Additionally its not incarcerated not strangulated does not meet any kind of emergency requirement for repair at this time. Extremity: COMMON NORMALS: normal to inspection, capillary refill normal, no clubbing, cyanosis or edema, no calf tenderness and no pedal edema Neuro: SENSORIUM/ORIENTATION: Yes oriented to person, Yes oriented to place and Yes oriented to time Skin: COMMON NORMALS: no rashes or lesions noted GENERAL SKIN EXAM: no rashes or lesions noted Course Vital Signs: Vital signs: Vital Signs Temperature 0 F L 05/15/20 20:31 Pulse Rate 0 L 05/15/20 20:31 Respiratory Rate 0 L 05/15/20 20:31 Blood Pressure 148/74 05/15/20 16:39 Pulse Oximetry 97 05/15/20 17:04 MDM - Abdominal Pain MDM Narrative: Medical decision making narrative: Ultrasound for paracentesis have discussed the radiologist they are planning on doing a therapeutic paracentesis. Ultrasound-guided paracentesis canceled. Patient is severely hyperkalemic and in acute renal failure. Hyperkalemia treated urgently in the emergency room. Nephrology consulted. Will admit and patient will proceed to emergent dialysis for her hyperkalemia. Lab Data: Labs: Lab Results 05/15/20 05/15/20 05/15/20 Range/Units 12:00 12:00 12:00 WBC 7.1 (4.0-10.0) 10^3/ uL RBC 3.33 L (4.1-5.3) 10^6/u L Hgb 10.8 L (11.5-15.3) g/dL Hct 33.1 L (37.0-47.0) % MCV 99.4 H (81-99) fL MCH 32.4 (28.0-34.0) pg MCHC 32.6 (30.0-36.0) g/dL RDW 13.9 (12.1-15.1) % Plt Count 126 L (130-400) 10^3/c mm MPV 9.7 (7.4-10.4) fL Neut % (Auto) 76.8 % Lymph % (Auto) 15.0 % Dougherty % (Auto) 6.2 % Eos % (Auto) 1.0 % Baso % (Auto) 0.4 % Neut # (Auto) 5.46 (1.8-7.7) 10^3/u L Lymph # (Auto) 1.1 (0.8-4.8) 10^3/u L Dougherty # (Auto) 0.4 (0.2-0.9) 10^3/u L Eos # (Auto) 0.1 (0.0-0.8) 10^3/u L Baso # (Auto) 0.0 (0.0-0.1) 10^3/u L Nucleated RBC % (a uto) 0 % Nucleated RBCs # 0.0 /100WBC PT 14.30 H (10.5-13.3) SECO NDS INR 1.07 (0.8-1.2) APTT 45.7 H (23.9-36.7) SECO NDS Sodium 123 L (136-145) mmol/L Potassium 7.2 H* (3.5-5.1) mmol/L Chloride 85 L (98-107) mmol/L Carbon Dioxide 22 (22-29) mmol/L Anion Gap 23.2 H (5-19) BUN 63 H (6-20) mg/dL Creatinine 8.2 H* (0.5-0.9) mg/dL GFR Calculation 5.0 L (90-130) mL/min Glucose 92 (65-115) mg/dL Calculated Osmolal ity 255 L (285-295) mOsm/k g Calcium 8.6 (8.5-10.5) mg/dL Total Bilirubin 0.3 (0.15-1.2) mg/dL AST 42 H (0-32) U/L ALT 43 H (0-33) U/L Alkaline Phosphata se 123 H (35-105) IU/L NT-Pro-B Natriuret Pep (0-125) pg/mL Total Protein 6.7 (6.6-8.7) g/dL Albumin 4.1 (3.5-5.2) g/dL Globulin 2.6 (1.3-4.6) g/dL Triglycerides (0-150) mg/dL Cholesterol (0-200) mg/dL LDL Cholesterol, C alc (50-129) mg/dL HDL Cholesterol (60-100) mg/dL LDL/HDL Ratio (0.00-3.22) RATI O Cholesterol/HDL Ra amador (0.0-4.40) mg/dL Lipase 32 (13-60) U/L Procalcitonin (0-0.5) ng/mL TSH (0.27-4.20) uIU/ mL Urine Color (Yellow) Urine Appearance (CLEAR) Urine pH (5-7) Ur Specific Gravit y (1.005-1.030) Urine Protein (Negative) Urine Glucose (UA) (Normal) Urine Ketones (Negative) Urine Blood (Negative) Urine Nitrate (Negative) Urine Bilirubin (NEGATIVE) Prot Sulfosalicyli c Acd (Negative) Urine Urobilinogen (Negative) mg/dL Ur Leukocyte Monie ase (Negative) Urine RBC (0-2) /hpf Urine WBC (0-5) /hpf Ur Squamous Epith Cells (0-5) Amorphous Sediment Urine Bacteria (NONE) Hep Bs Antigen (Nonreactive) 05/15/20 05/15/20 05/15/20 Range/Units 12:00 12:00 12:00 WBC (4.0-10.0) 10^3/ uL RBC (4.1-5.3) 10^6/u L Hgb (11.5-15.3) g/dL Hct (37.0-47.0) % MCV (81-99) fL MCH (28.0-34.0) pg MCHC (30.0-36.0) g/dL RDW (12.1-15.1) % Plt Count (130-400) 10^3/c mm MPV (7.4-10.4) fL Neut % (Auto) % Lymph % (Auto) % Dougherty % (Auto) % Eos % (Auto) % Baso % (Auto) % Neut # (Auto) (1.8-7.7) 10^3/u L Lymph # (Auto) (0.8-4.8) 10^3/u L Dougherty # (Auto) (0.2-0.9) 10^3/u L Eos # (Auto) (0.0-0.8) 10^3/u L Baso # (Auto) (0.0-0.1) 10^3/u L Nucleated RBC % (a uto) % Nucleated RBCs # /100WBC PT (10.5-13.3) SECO NDS INR (0.8-1.2) APTT (23.9-36.7) SECO NDS Sodium (136-145) mmol/L Potassium (3.5-5.1) mmol/L Chloride (98-107) mmol/L Carbon Dioxide (22-29) mmol/L Anion Gap (5-19) BUN (6-20) mg/dL Creatinine (0.5-0.9) mg/dL GFR Calculation (90-130) mL/min Glucose (65-115) mg/dL Calculated Osmolal ity (285-295) mOsm/k g Calcium (8.5-10.5) mg/dL Total Bilirubin (0.15-1.2) mg/dL AST (0-32) U/L ALT (0-33) U/L Alkaline Phosphata se (35-105) IU/L NT-Pro-B Natriuret Pep 25077 H (0-125) pg/mL Total Protein (6.6-8.7) g/dL Albumin (3.5-5.2) g/dL Globulin (1.3-4.6) g/dL Triglycerides 270 H (0-150) mg/dL Cholesterol 130 (0-200) mg/dL LDL Cholesterol, C alc 48 L (50-129) mg/dL HDL Cholesterol 28 L (60-100) mg/dL LDL/HDL Ratio 1.71 (0.00-3.22) RATI O Cholesterol/HDL Ra amador 4.64 H (0.0-4.40) mg/dL Lipase (13-60) U/L Procalcitonin 0.83 H (0-0.5) ng/mL TSH 5.65 H (0.27-4.20) uIU/ mL Urine Color (Yellow) Urine Appearance (CLEAR) Urine pH (5-7) Ur Specific Gravit y (1.005-1.030) Urine Protein (Negative) Urine Glucose (UA) (Normal) Urine Ketones (Negative) Urine Blood (Negative) Urine Nitrate (Negative) Urine Bilirubin (NEGATIVE) Prot Sulfosalicyli c Acd (Negative) Urine Urobilinogen (Negative) mg/dL Ur Leukocyte Monie ase (Negative) Urine RBC (0-2) /hpf Urine WBC (0-5) /hpf Ur Squamous Epith Cells (0-5) Amorphous Sediment Urine Bacteria (NONE) Hep Bs Antigen Non-reactive (Nonreactive) 05/15/20 Range/Units 12:50 WBC (4.0-10.0) 10^3/ uL RBC (4.1-5.3) 10^6/u L Hgb (11.5-15.3) g/dL Hct (37.0-47.0) % MCV (81-99) fL MCH (28.0-34.0) pg MCHC (30.0-36.0) g/dL RDW (12.1-15.1) % Plt Count (130-400) 10^3/c mm MPV (7.4-10.4) fL Neut % (Auto) % Lymph % (Auto) % Dougherty % (Auto) % Eos % (Auto) % Baso % (Auto) % Neut # (Auto) (1.8-7.7) 10^3/u L Lymph # (Auto) (0.8-4.8) 10^3/u L Dougherty # (Auto) (0.2-0.9) 10^3/u L Eos # (Auto) (0.0-0.8) 10^3/u L Baso # (Auto) (0.0-0.1) 10^3/u L Nucleated RBC % (a uto) % Nucleated RBCs # /100WBC PT (10.5-13.3) SECO NDS INR (0.8-1.2) APTT (23.9-36.7) SECO NDS Sodium (136-145) mmol/L Potassium (3.5-5.1) mmol/L Chloride (98-107) mmol/L Carbon Dioxide (22-29) mmol/L Anion Gap (5-19) BUN (6-20) mg/dL Creatinine (0.5-0.9) mg/dL GFR Calculation (90-130) mL/min Glucose (65-115) mg/dL Calculated Osmolal ity (285-295) mOsm/k g Calcium (8.5-10.5) mg/dL Total Bilirubin (0.15-1.2) mg/dL AST (0-32) U/L ALT (0-33) U/L Alkaline Phosphata se (35-105) IU/L NT-Pro-B Natriuret Pep (0-125) pg/mL Total Protein (6.6-8.7) g/dL Albumin (3.5-5.2) g/dL Globulin (1.3-4.6) g/dL Triglycerides (0-150) mg/dL Cholesterol (0-200) mg/dL LDL Cholesterol, C alc (50-129) mg/dL HDL Cholesterol (60-100) mg/dL LDL/HDL Ratio (0.00-3.22) RATI O Cholesterol/HDL Ra amador (0.0-4.40) mg/dL Lipase (13-60) U/L Procalcitonin (0-0.5) ng/mL TSH (0.27-4.20) uIU/ mL Urine Color Yellow (Yellow) Urine Appearance Clear (CLEAR) Urine pH 8 H (5-7) Ur Specific Gravit y 1.015 (1.005-1.030) Urine Protein 2+ H (Negative) Urine Glucose (UA) Norm (Normal) Urine Ketones Negative (Negative) Urine Blood 2+ H (Negative) Urine Nitrate Negative (Negative) Urine Bilirubin Neg (NEGATIVE) Prot Sulfosalicyli c Acd Positive (Negative) Urine Urobilinogen Norm (Negative) mg/dL Ur Leukocyte Monie ase Trace H (Negative) Urine RBC 5-10 H (0-2) /hpf Urine WBC 5-10 H (0-5) /hpf Ur Squamous Epith Cells 0-4 H (0-5) Amorphous Sediment Not Reportable Urine Bacteria Trace (NONE) Hep Bs Antigen (Nonreactive) Discharge Plan Discharge Patient Disposition: Admitted As Inpatient Admit Provider: Matt Cotton Clinical Impression: Acute hyperkalemia, Liver cirrhosis, Hepatitis C, Acute renal failure superimposed on chronic kidney disease Interventions: ED Discharge Assessment Last Done: 05/15/20 16:39 ED Charges Last Done: 05/15/20 16:39 Discharge Date/Time: 05/15/20 16:48 Coding Level of Care Code ED Golf Course Laborer for Patriciag Fwd Exam Comprehensive
[2020-05-15 12:11] LABS: Basophils % 0.4 %; Eosinophils # 0.1 10^3/uL (0.0-0.8); Hematocrit 33.1 % (37.0-47.0); Hemoglobin 10.8 g/dL (11.5-15.3); Lymphocytes # 1.1 10^3/uL (0.8-4.8); Mean Corpuscular HGB Conc 32.6 g/dL (30.0-36.0); Mean Corpuscular Hemoglobin 32.4 pg (28.0-34.0); Mean Corpuscular Volume 99.4 fL (81-99); Mean Platelet Volume 9.7 fL (7.4-10.4); Monocytes # 0.4 10^3/uL (0.2-0.9); Monocytes % 6.2 %; Neutrophils # 5.46 10^3/uL (1.8-7.7); Neutrophils % 76.8 %; Nucleated Red Blood Cells % 0 %; Platelet Count 126 10^3/cmm (130-400); Red Blood Count 3.33 10^6/uL (4.1-5.3); Red Cell Distribution Width 13.9 % (12.1-15.1); White Blood Count 7.1 10^3/uL (4.0-10.0)
[2020-05-15] MEDS: ondansetron 2 mg/ML SDV 2 mL 4 MG IVP ×2 (12:20→15:03)
[2020-05-15] MEDS: sodium chloride 0.9% 1,000 ML 999 ML IV (12:20)
[2020-05-15 12:25] LABS: Alanine Aminotransferase 43 U/L (0-33); Albumin Level 4.1 g/dL (3.5-5.2); Alkaline Phosphatase 123 IU/L (35-105); Anion Gap 23.2 (5-19); Aspartate Amino Transferase 42 U/L (0-32); Blood Urea Nitrogen 63 mg/dL (6-20); Calcium 8.6 mg/dL (8.5-10.5); Carbon Dioxide 22 mmol/L (22-29); Chloride 85 mmol/L (98-107); Globulin 2.6 g/dL (1.3-4.6); Glucose 92 mg/dL (65-115); Lipase 32 U/L (13-60); Osmolality Calculated 255 mOsm/kg (285-295); Sodium 123 mmol/L (136-145); Total Bilirubin 0.3 mg/dL (0.15-1.2); Total Protein 6.7 g/dL (6.6-8.7)
[2020-05-15 12:32] LABS: Potassium 7.2 mmol/L (3.5-5.1)
--- NOTE | 2020-05-15 12:39 | ECG_ITS ---
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 Measurements Intervals [place] Rate: 72 P: 241 WV: 162 QRS: 232 QRSD: 69 T: 218 QT: 439 QTc: 481 Interpretive Statements SINUS RHYTHM RBBB No previous ECG available for comparison Electronically Signed On 05-15-2020 17:04:19 CDT by Zita Cristobal M.D. [id number]
[2020-05-15 12:45] LABS: INR 1.07 (0.8-1.2); Partial Thromboplastin Time 45.7 SECONDS (23.9-36.7)
--- NOTE | 2020-05-15 14:10 | PM.CONSULT ---
Providers/Reason For Consult Consulting Physican/Specialty*: irineo alexis md telenephrology Reason for Consult*: ESRD care and hyperkalemia Primary Care Provider: Rose Marie Riojas DO History of Present Illness History of Present Illness Manasa Monreal is a 59 year old female w/ hep C, hepatic cirrhosis, ascites, ESRD on HD MWF. Pt here as missed HD yesterday. She c/o n/v all night between Tuesday and Tuesday and therefore missed HD yesterday. She presented to ED w/ SOB and anxiety. She also c/o abd hernia and ascites. Review of Systems General: Reports: 10 or more systems reviewed and unremarkable except in HPI and below Narrative: sob, anxious, nausea, edema, weak, lethargic, anxious. ascites Meds/Allergies Home Medications and Allergies Home Medications Medication Instructions Recorded Confirmed Last Taken Type glucosamine sulfate [Glucosamine] 500 mg PO DAILY 03/10/20 05/15/20 05/14/20 History metoprolol tartrate 100 mg PO BID 03/10/20 05/15/20 05/14/20 History alpha lipoic acid 100 mg PO DAILY 03/18/20 05/15/20 05/14/20 History ergocalciferol (vitamin D2) 1,250 mcg PO DAILY 03/18/20 05/15/20 05/12/20 History alprazolam [Xanax] 0.25 mg PO BID PRN 03/25/20 05/15/20 05/06/20 History ferric citrate [Auryxia] 420 mg PO TID 03/25/20 05/15/20 05/14/20 History pantoprazole 40 mg PO DAILY 03/25/20 05/15/20 05/14/20 History ipratropium-albuterol See Rx Instructions .ROUTE .COMPLEX 04/22/20 05/15/20 05/12/20 History hydroxyzine pamoate 25 - 50 mg PO DAILY PRN 05/15/20 05/15/20 Unknown History nifedipine 60 mg PO DAILY 05/15/20 05/15/20 05/15/20 History ondansetron HCl [Zofran] 4 mg PO Q6H PRN 05/15/20 05/15/20 05/15/20 History sodium bicarbonate 650 mg PO BID 07/07/2705/15/20 05/15/20 History Allergies Allergy/AdvReac Type Severity Reaction Status Date / Time codeine Allergy ADR-Itching Verified 04/21/20 11:17 Penicillins Allergy ALGY-Swell Verified 04/21/20 11:17 Lip/Tongue/Throat TRAZADONE Allergy ADV-Weaknes Uncoded 04/22/20 10:03 s PFSH Acute PFSH: Medical History Ascites Hep C w/o coma, chronic Hepatic cirrhosis Social History Smoking and tobacco status: current every day smoker Vitals/I&O/Wt Last Vital Signs Temp 98.0 F 05/15/20 10:39 Pulse 75 05/15/20 13:14 Resp 18 05/15/20 13:10 BP 171/69 05/15/20 11:56 Pulse Ox 93 05/15/20 13:10 Weight last 48 hrs Weight 78.925 kg Physical Exam Narrative: EXAM NARRATIVE: anxious, NAD Heent- nc/at, eomi, icteric neck supple lung dull bases heart reg, no rub, +s1, s2 abd soft, + hernia ant wall, + BS ext + edema RUE AVF w/ thrill and bruit ACW port neuro- a,a, o x 2+, anxious A&P Additional A&P Information 1. ESRD- on HD MWF. she missed HD yesterday. will dialyze now- 3hr, 2k ,remove 2.5- 3l -she dialyzes w/ dr. Mcdonough at [facility] -pt states that she has PKD- many family members w/ ESRD or CKD - i am concerned how much liver disease contributed to ESRD 2. h/o hep c and cirrhosis- she getrs weekly paracentesis- last on 05/13/20 -consider a diagnostic paracentesis 3. hgb okay 4. hyponatremia- from cirrhosis and AKJI 5. hyperkalemia- low k renal diet and emergent HD- she will only allow 3 hrs Consult Attestations Medical Necessity Statement: hyoerkalemia, ESRD, SOB Time Spent in Patient Care: Greater than 35 minutes Coding Level of Care Code Acute Detail Supervisor for Chg Muna
[2020-05-15] MEDS: sodium bicarbonate 8.4% 1 mEq/mL 50mL Syr 100 MEQ IVP (14:33)
[2020-05-15] MEDS: dextrose 50% syringe 50 mL IVP (14:34)
[2020-05-15] MEDS: calcium gluconate 0.1 gm/mL 10% SDV 10mL 2 GM IVP (14:34)
[2020-05-15] MEDS: sodium polystyrene sulfonate 15 gm/60 mL Btl PO (14:35)
[2020-05-15] MEDS: insulin regular-human 100 units/1 mL 10 UNIT IVP (14:35)
[2020-05-15] MEDS: morphine 4 mg/mL SDV 1 mL IVP (15:04)
--- NOTE | 2020-05-15 15:05 | PM.HP ---
Providers/Chief Complaint Primary Care Provider: Rose Marie Riojas DO Chief Complaint: SOB History of Present Illness Manasa Monreal is a 59 year old female with a past medical history of CAD, states that she has had 2 myocardial infarcts, COPD, current smoker, liver cirrhosis, hepatitis C, end-stage renal disease on dialysis, hypertension, who presents to [facility] due to complaints of shortness of breath. Patient states that she is from [facility], recently moved to [place] a month ago. Patient states that on Tuesday she just not was not feeling well, felt very nauseous, she did not go to dialysis. No fevers, no chills, no diarrhea, no dysuria, no hematuria, no sick contacts, no exposure to COVID-19. Patient states that starting overnight she started to develop shortness of breath, shortness of breath at rest, no chest pain, no cough, no wheezing, she also said that she had orthopnea And paroxysmal nocturnal dyspnea, she could not lie flat, she could not sleep all night. She comes to the emergency room because she feels short of breath. Patient denies chest pain, denies palpitations, no lightheadedness, no dizziness, no strokelike symptoms. No calf pain no calf swelling. No recent travel. No recent surgeries. No hemoptysis. No history of DVTs or PEs. Patient states that she cannot take heparin because she has life-threatening bleeding with anticoagulation, thus she gets normal saline with dialysis instead of heparin. Patient states that she has a history of liver cirrhosis, she is managed through a veterans services specialist in [place], she gets regular paracentesis. Denies a history of abdominal pain, fevers or chills. Review of Systems Const: Denies: fever(s), chills, fatigue or malaise Eyes: Denies: change in vision or blurry vision ENMT: Denies: nasal congestion Card: Denies: chest pain, palpitations, irregular heart rhythm, lightheadedness or syncope Resp: Reports: dyspnea; Denies: productive cough, non-productive cough or wheezing GI: Denies: abdominal pain, nausea, vomiting, hematemesis, diarrhea, constipation, hematochezia or melena : Denies: flank pain, dysuria or urinary frequency Musc: Denies: neck pain or back pain Skin/Breast: Denies: rash Neuro: Denies: headache(s), dizziness or vertigo Psych: Denies: anxiety or depression Endo: Denies: polyuria or polydipsia Medications/Allergies Home Medications Medication Instructions Recorded Confirmed Last Taken Type glucosamine sulfate [Glucosamine] 500 mg PO DAILY 03/10/20 05/15/20 05/14/20 History metoprolol tartrate 100 mg PO BID 03/10/20 05/15/20 05/14/20 History alpha lipoic acid 100 mg PO DAILY 03/18/20 05/15/20 05/14/20 History ergocalciferol (vitamin D2) 1,250 mcg PO DAILY 03/18/20 05/15/20 05/12/20 History alprazolam [Xanax] 0.25 mg PO BID PRN 03/25/20 05/15/20 05/06/20 History ferric citrate [Auryxia] 420 mg PO TID 03/25/20 05/15/20 05/14/20 History pantoprazole 40 mg PO DAILY 03/25/20 05/15/20 05/14/20 History ipratropium-albuterol See Rx Instructions .ROUTE .COMPLEX 04/22/20 05/15/20 05/12/20 History hydroxyzine pamoate 25 - 50 mg PO DAILY PRN 05/15/20 05/15/20 Unknown History nifedipine 60 mg PO DAILY 05/15/20 05/15/20 05/15/20 History ondansetron HCl [Zofran] 4 mg PO Q6H PRN 05/15/20 05/15/20 05/15/20 History sodium bicarbonate 650 mg PO BID 05/15/20 05/15/20 05/15/20 History Allergies Allergy/AdvReac Type Severity Reaction Status Date / Time codeine Allergy ADR-Itching Verified 04/21/20 11:17 Penicillins Allergy ALGY-Swell Verified 04/21/20 11:17 Lip/Tongue/Throat TRAZADONE Allergy ADV-Weaknes Uncoded 04/22/20 10:03 s PFSH Acute PFSH: Medical History (Updated 05/15/20 @ 15:14 by Matt Cotton MD) Anxiety and depression Arteriovenous fistula for hemodialysis in place, primary Ascites CAD (coronary artery disease) COPD (chronic obstructive pulmonary disease) End stage renal disease on dialysis GERD (gastroesophageal reflux disease) Hep C w/o coma, chronic Hepatic cirrhosis Hepatitis C History of abdominal paracentesis Liver cirrhosis Surgical History (Updated 05/15/20 @ 15:11 by Matt Cotton MD) H/O: hysterectomy Family History (Updated 05/15/20 @ 15:11 by Matt Cotton MD) Other CAD (coronary artery disease) Diabetes Social History Smoking and tobacco status: current every day smoker Vitals/I&O/Wt Last Vital Signs Temp 98.0 F 05/15/20 10:39 Pulse 75 05/15/20 13:14 Resp 18 05/15/20 13:10 BP 171/69 05/15/20 11:56 Pulse Ox 93 05/15/20 13:10 Weight last 48 hrs Weight 78.925 kg Physical Exam Const: COMMON NORMALS: no acute distress and patient oriented x3 HENMT: COMMON NORMALS: normocephalic HEAD & SCALP: normocephalic Neck/C-Spine: COMMON NORMALS: no JVD Resp: COMMON NORMALS: normal respiratory effort, No retractions, No use of accessory muscles and clear to auscultation bilaterally AUSCULTATION: rhonchi and wheezes Cardio: COMMON NORMALS: no JVD, regular rate, regular rhythm, S1 normal heart sound present and S2 normal heart sound present RATE: regular rate RHYTHM: regular rhythm HEART SOUNDS: S1 normal heart sound present and S2 normal heart sound present GI: COMMON NORMALS: Soft to palpation, non-tender, No hepatosplenomegaly present, no masses and no bruits INSPECTION: Yes normal to inspection and Yes abdominal distension AUSCULTATION: Yes normoactive bowel sounds PALPATION: Yes Soft to palpation and No Tenderness to palpation present (GI) Extremity: COMMON NORMALS: capillary refill normal, no clubbing, cyanosis or edema, no calf tenderness and no pedal edema Neuro: COMMON NORMALS: patient oriented x3 Psych: COMMON NORMALS: mental status grossly normal Data : 05/15/20 12:00 05/15/20 12:00 A&P Assessment and plan (1) Shortness of breath: -Patient states she has shortness of breath, orthopnea, paroxysmal nocturnal dyspnea, history of CAD, history of COPD, not requiring oxygen in the ER, no active wheezing -Likely fluid overload from missing dialysis -But we will do troponin series, EKG -Order cardiac echocardiogram -CT chest Status: Acute (2) End stage renal disease on dialysis: -Missed dialysis on Tuesday -Creatinine 8.2, sodium 123, potassium 7.2 -We will get dialysis today, hopefully also tomorrow Status: Acute (3) Hepatitis C: -Managed through a veterans services specialist in [place] Status: Acute (4) Liver cirrhosis: -Will get a paracentesis for ascites Status: Acute (5) COPD (chronic obstructive pulmonary disease): -No in active exacerbation, will give nebulizer treatment as needed Status: Acute (6) CAD (coronary artery disease): -No complaints of chest pain Status: Acute (7) Anemia: Likely second to liver cirrhosis monitor- Status: Acute (8) Thrombocytopenia: Likely secondary liver cirrhosis monitor Status: Acute (9) Anxiety and depression: Status: Acute (10) GERD (gastroesophageal reflux disease): Status: Acute (11) Hyponatremia: Likely secondary to missed dialysis monitor Status: Acute (12) Transaminitis: Likely secondary to liver cirrhosis, hep C Status: Acute Additional A&P Information Patient is a full code SCDs for DVT prophylaxis, patient refused heparin or its derivatives Already patient's family that she wants to leave AGAINST MEDICAL ADVICE, she needs to get home to her dog, she would not stay in the hospital overnight I advised patient that she has complaints of shortness of breath, I I am worried about a cardiac etiology, she needs to stay in the hospital for further work-up and evaluation. Patient refuses, states that she wants to go home. I advised patient that she has a significant risk of morbidity, mortality, including but not limited to VT, acute respiratory failure, ICU admission, ending up on the ventilator. Patient voiced understanding, all questions answered. Is adamant about going home after dialysis. I advised the patient that she would have to sign out AGAINST MEDICAL ADVICE. 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
[2020-05-15 15:07] LABS: Add Urine Microscopic? YES; Bilirubin Urine Neg (NEGATIVE); Blood Urine 2+ (Negative); Glucose Urine UA Norm (Normal); Ketones Urine Negative (Negative); Leukocyte Esterase Urine Trace (Negative); Nitrate Urine Negative (Negative); Protein Urine 2+ (Negative); Specific Gravity, Urine 1.015 (1.005-1.030); Sulfosalicylic Acid Urine Positive (Negative); Urine Appearance Clear (CLEAR); Urine Color Yellow (Yellow); Urobilinogen Urine Norm (Negative); pH Urine 8 (5-7)
[2020-05-15 15:09] LABS: Add Urine Culture? No; Bacteria Urine TRACE; Squamous Epithelial Cell Urine 0-4 (0-5)
[2020-05-15 15:41] LABS: Hepatitis B Surface Antigen Non-Reactive (Nonreactive)
[2020-05-15 16:12] LABS: Procalcitonin 0.83 ng/mL (0-0.5)
[2020-05-15 16:13] LABS: Chol HDL Ratio 4.64 mg/dL (0.0-4.40); Cholesterol 130 mg/dL (0-200); HDL Cholesterol 28 mg/dL (60-100); LDL Cholesterol Calculated 48 mg/dL (50-129); LDL HDL Ratio 1.71 RATIO (0.00-3.22); Thyroid Stimulating Hormone 5.65 uIU/mL (0.27-4.20); Triglycerides 270 mg/dL (0-150)
--- NOTE | 2020-05-15 16:45 | ECG_ITS ---
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 Measurements Intervals [place] Rate: 75 P: 43 VA: 142 QRS: 78 QRSD: 150 T: 25 QT: 437 QTc: 491 Interpretive Statements SINUS RHYTHM POSSIBLE LEFT ATRIAL ENLARGEMENT [-0.1mV P WAVE IN V1/V2] RIGHT BUNDLE BRANCH BLOCK [120+ ms QRS DURATION, UPRIGHT V1, 40+ ms S IN I/aVL/V4/V5/V6] Compared to ECG 05/15/2020 12:46:05 Right bundle-branch block now present Myocardial infarct finding no longer present ST (T wave) deviation no longer present Electronically Signed On 05-15-2020 17:15:23 CDT by Zita Cristobal M.D. [id number]
[2020-05-15 17:47] LABS: Lactic Sepsis W/Reflex 0.7 mmol/L (0.5-2.2)
[2020-05-15 17:50] LABS: Troponin(5th) Baseline 63 ng/L (0-10)
[2020-05-15 17:57] LABS: Estmated Average Glucose 77; Hemoglobin A1C 4.3 % (4.0-6.0)
[2020-05-15 18:18] LABS: Partial Thromboplastin Time 30.6 SECONDS (23.9-36.7)
--- NOTE | 2020-05-15 18:51 | PC.NURSE ---
call from dialysis with reports of patients of patients blood pressure sys greater than 200 Dr jones notified orders given for labatolol 10 mg IVP PRN q4h for sys > 180 or >100 hold if HR is less than 60
[2020-05-15] MEDS: labetalol 5 mg/mL SDV 20mL 10 MG IVP (19:27)
--- NOTE | 2020-05-15 19:28 | PC.NURSE ---
Pt's BP 207/82. Labetalol administered per PRN orders. Pt resting in chair and states Are you my nurse tonight? I am going home as soon as this is done. No point in staying when I have to come back tomorrow for the same thing. Pt states that her son will be picking her up. No further questions at this time. Pt resting comfortably in dialysis chair. No further needs at this time. aquatics specialist at side.
[2020-05-15 19:35] LABS: Troponin 5 2HR 68.57 ng/L (0-10); Troponin 5 2HR Delta 5.57 ABS# (0-10)
--- NOTE | 2020-05-15 20:27 | PC.NURSE ---
DISCHARGE AMA: Pt returned to room from dialysis. Asked immediately to be wheeled out to son at ER room. AMA paperwork given to patient. Patient informed per physician request of possible cardiac event and faced the risks of worsened symtpoms or potential due to refusal of treatment. Pt stated oh, I will be alright. No further questions at this time. Taken via wheelchair to ER entrance.
== END 2020-05-15 20:32 | disposition left against medical advice (07) ==
LOC: ER 15:31 → CSU 15:33
PROVIDERS: Internal Medicine Nephrology; Admitting Provider Family Medicine; Emergency Provider Family Medicine; PCP Family Medicine; Visit Provider Family Medicine
DX: R06.02 Shortness of breath (principal); I12.0 Hypertensive chronic kidney disease with stage 5 chronic kidney disease or end stage renal disease; N18.6 End stage renal disease; B19.20 Unspecified viral hepatitis C without hepatic coma; K74.60 Unspecified cirrhosis of liver; Z99.2 Dependence on renal dialysis; J44.9 Chronic obstructive pulmonary disease, unspecified; I25.10 Atherosclerotic heart disease of native coronary artery without angina pectoris; D64.9 Anemia, unspecified; D69.6 Thrombocytopenia, unspecified; F41.9 Anxiety disorder, unspecified; F32.9 Major depressive disorder, single episode, unspecified; K21.9 Gastro-esophageal reflux disease without esophagitis; E87.1 Hypo-osmolality and hyponatremia; R74.0 Nonspecific elevation of levels of transaminase and lactic acid dehydrogenase [LDH]; Z53.29 Procedure and treatment not carried out because of patient's decision for other reasons; I25.2 Old myocardial infarction; F17.210 Nicotine dependence, cigarettes, uncomplicated; Z83.3 Family history of diabetes mellitus; Z82.49 Family history of ischemic heart disease and other diseases of the circulatory system
CPT/HCPCS: 12345; 80053; 80061; 81001; 81003; 83036; 83605; 83690; 83880; 84145; 84443; 84484; 85025; 85610; 85730; 87340; 93005; 94640; 94664; 96374; 96375; 96376; 99283; 99285; G0378; J0610; J1815; J2270; J2405; J3490; J7030; J7611

== ENCOUNTER 2020-05-20 08:00 | Outpatient (CLI) | payer MEDICARE, MEDICAID, SELFPAY ==
[2020-05-20 08:44] VITALS: BP 169/94; PULSE 75; RESP 20; TEMP 36.2; O2SAT 97
[2020-05-20 11:36] VITALS: BP 188/81; PULSE 74; RESP 18; TEMP 36.4; O2SAT 98
--- NOTE | 2020-05-20 11:41 | SUR.OPER ---
STERILE DRESSING APPLIED TO PARACENTESIS SITE WITH TEGRADERM.
== END 2020-05-20 09:00 | disposition home or self-care (01) ==
LOC: RAD 06-24 16:12
PROVIDERS: PCP Family Medicine; Visit Provider Internal Medicine Nephrology
DX: K74.60 Unspecified cirrhosis of liver (principal); B18.2 Chronic viral hepatitis C; R18.8 Other ascites
CPT/HCPCS: 49083; J1642; P9047

== ENCOUNTER 2020-06-03 08:03 | Outpatient (RCR) | payer MEDICARE, MEDICAID, SELFPAY ==
--- NOTE | 2020-05-20 09:18 | US_ITS ---
WS: [id number] ULTRASOUND-GUIDED PARACENTESIS CLINICAL INFORMATION: ASCITES COMPARISON: None. Procedure Informed consent: The risks, benefits, and alternatives of the procedure were discussed with the darnell ent. Verbal and written consent was obtained. Timeout: A timeout was performed to confirm the correct patient, procedure, and site. Preparation: A suitable skin site was identified. The patient was prepped and draped in usual sterile fashion. Lidocaine 1% was used for local anesthesia. Catheter: 4 Maltese One-step Yueh catheter. Side: Left Lower quadrant. Fluid Volume: 3000 ml Color: Hank DISPOSITION: Discarded safely. Complications: None. Patient disposition: Discharged from the department in stable condition. US/US paracentesis abd w [id number] IMPRESSION: Uncomplicated ultrasound-guided paracentesis. Removal of 3000 cc of hank-colored fluid
--- NOTE | 2020-05-27 08:26 | US_ITS ---
WS: [id number] ULTRASOUND-GUIDED THERAPEUTIC PARACENTESIS Procedure, risks, and complications have been explained to the patient. Consent is obtained. Utilizing aseptic technique and 1% buffered lidocaine, a small dermatome was made through which a 5 F rench Yueh catheter was inserted. Approximately 3000 ml of clear peritoneal fluid was obtained witho ut difficulty. No complications encountered. US/US paracentesis abd w [id number] IMPRESSION: Uncomplicated paracentesis yielding 3000 ml of peritoneal fluid.
[2020-05-27 08:51] VITALS: BMI 29.2
[2020-05-27 08:56] VITALS: BP 149/69; PULSE 80; RESP 18; TEMP 36.8; O2SAT 96
--- NOTE | 2020-06-03 | US_ITS ---
WS: [id number] ULTRASOUND-GUIDED PARACENTESIS CLINICAL INFORMATION: ASCITES COMPARISON: None. Procedure Informed consent: The risks, benefits, and alternatives of the procedure were discussed with the darnell ent. Verbal and written consent was obtained. Timeout: A timeout was performed to confirm the correct patient, procedure, and site. Preparation: A suitable skin site was identified. The patient was prepped and draped in usual sterile fashion. Lidocaine 1% was used for local anesthesia. Catheter: 4 Lao One-step Yueh catheter. Side: Left Lower quadrant. Fluid Volume: 2500 ml Color: Berta DISPOSITION: Discarded safely. Complications: None. Patient disposition: Discharged from the department in stable condition. US/US paracentesis abd w [id number] IMPRESSION: Uncomplicated ultrasound-guided paracentesis. Removal of 2500 cc
[2020-06-03 08:20] VITALS: BP 209/94; PULSE 80; RESP 16; TEMP 36.4; O2SAT 97
== END 2020-06-03 14:00 | disposition home or self-care (01) ==
LOC: OPS 08:03
PROVIDERS: PCP Family Medicine; Visit Provider Internal Medicine Nephrology
DX: B19.20 Unspecified viral hepatitis C without hepatic coma (principal); R18.8 Other ascites; K74.60 Unspecified cirrhosis of liver
CPT/HCPCS: 49083; 96365; J1642; P9047

== ENCOUNTER 2020-06-03 14:23 | Emergency (ER) | payer MEDICARE, MEDICAID, SELFPAY ==
[2020-06-03 14:26] VITALS: BP 189/73; PULSE 90; RESP 16; TEMP 36.2; O2SAT 99; BMI 29.5
--- NOTE | 2020-06-03 14:45 | ED_ITS ---
HPI - Skin/Abscess/Foreign Bdy General: Chief complaint: Skin/Abscess/Foreign Body Stated complaint: bleeding Time Seen by Provider: 06/03/20 14:29 History of Present Illness: HPI narrative: Patient has a history of recurrent ascites. She had paracentesis performed this morning. She presents to the emergency room because there is still some clear fluid leaking from the needle insertion site. Review of Systems General: Reports: 10 or more systems reviewed and unremarkable except in HPI and below PFSH ED 2 PFSH: Medical History Anxiety and depression Arteriovenous fistula for hemodialysis in place, primary Ascites CAD (coronary artery disease) COPD (chronic obstructive pulmonary disease) End stage renal disease on dialysis GERD (gastroesophageal reflux disease) Hep C w/o coma, chronic Hepatic cirrhosis Hepatitis C History of abdominal paracentesis Liver cirrhosis Surgical History H/O: hysterectomy Family History Other CAD (coronary artery disease) Diabetes Social History Smoking and tobacco status: current every day smoker Physical Exam Skin: NARRATIVE SKIN EXAM: There is a very small amount of clear fluid leaking from the needle insertion site from her paracentesis this morning. Course ED course: Patient was reassured and provided with 4 x 4's and tape for dressing changes. Vital Signs: Vital signs: Vital Signs Temperature 97.1 F L 06/03/20 14:26 Pulse Rate 90 06/03/20 14:26 Respiratory Rate 16 06/03/20 14:26 Blood Pressure 189/73 06/03/20 14:26 Pulse Oximetry 99 06/03/20 14:26 Discharge Plan Discharge Patient Disposition: Home Clinical Impression: Transaminitis, Encounter for wound re-check Condition: Stable Prescriptions: No Action sodium bicarbonate 650 mg Tablet 650 mg PO BID RF: 0 nifedipine 60 mg Tablet Extended Release 60 mg PO BEDTIME RF: 0 metoprolol tartrate 100 mg Tablet 100 mg PO DAILY RF: 0 glucosamine sulfate [Glucosamine] 500 mg Tablet 500 mg PO DAILY RF: 0 ergocalciferol (vitamin D2) 1,250 mcg (50,000 unit) Capsule 1,250 mcg PO DAILY RF: 0 alpha lipoic acid 100 mg Capsule 100 mg PO DAILY RF: 0 ipratropium-albuterol 0.5 mg-3 mg(2.5 mg base)/3 mL solution for nebulization See Rx Instructions .ROUTE .COMPLEX RF: 0 Discharge Orders: Discharge Order (Routine); Ordered 06/03/20 Ordered By: Olayinka Eagle Referrals: Rose Marie Riojas DO [Primary Care Provider] - Coding Level of Care Code ED 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
--- NOTE | 2020-06-03 14:52 | PC.NURSE ---
site covered with 4x4's and tape
== END 2020-06-03 15:00 | disposition home or self-care (01) ==
PROVIDERS: Emergency Provider Family Medicine; PCP Family Medicine
DX: Z48.00 Encounter for change or removal of nonsurgical wound dressing (principal); R74.0 Nonspecific elevation of levels of transaminase and lactic acid dehydrogenase [LDH]; I25.10 Atherosclerotic heart disease of native coronary artery without angina pectoris; J44.9 Chronic obstructive pulmonary disease, unspecified; N18.6 End stage renal disease; Z86.19 Personal history of other infectious and parasitic diseases; F17.210 Nicotine dependence, cigarettes, uncomplicated
CPT/HCPCS: 12345; 99282

== ENCOUNTER 2020-06-05 11:47 | Emergency (ER) | payer MEDICARE, MEDICAID, SELFPAY ==
[2020-06-05 11:48] VITALS: BP 107/75; PULSE 84; RESP 18; TEMP 36.9; O2SAT 98; BMI 29.7
--- NOTE | 2020-06-05 11:53 | XRR_ITS ---
PROCEDURE INFORMATION: Exam: XR Chest, 1 View Exam date and time: 06/05/2020 12:03 PM Age: 59 years old Clinical indication: Dyspnea TECHNIQUE: Imaging protocol: XR of the chest Views: 1 view. COMPARISON: No relevant prior studies available. FINDINGS: Lungs: Lungs are well aerated without a focal area of consolidation. Pleural space: Unremarkable. No pleural effusion. No pneumothorax. Heart/Mediastinum: Cardiac silhouette is enlarged. Vasculature: Chest port via the left subclavian approach with the tip overlying the superior vena cava. Bones/joints: Unremarkable. XR/XR chest 1V portable [id number] IMPRESSION: Lungs are well aerated without a focal area of consolidation. Cardiomegaly
--- NOTE | 2020-06-05 11:54 | ECG_ITS ---
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 Measurements Intervals [place] Rate: 72 P: 70 AR: 144 QRS: 87 QRSD: 150 T: 49 QT: 447 QTc: 492 Interpretive Statements RIGHT BUNDLE BRANCH BLOCK [120+ ms QRS DURATION, UPRIGHT V1, 40+ ms S IN I/aVL/V4/V5/V6] Sinus rhythm with uniform PVCs Compared to ECG 05/15/2020 16:51:37 Electronically Signed On 06-06-2020 15:59:39 CDT by Pancho Hogan M.D. [id number]
[2020-06-05] MEDS: ipratropium-albuterol 3 mL Neb 9 ML INHALATION (12:17)
[2020-06-05 12:19] VITALS: PULSE 80; RESP 18; O2SAT 99
[2020-06-05 12:21] VITALS: PULSE 83
[2020-06-05 12:30] LABS: ABG PCO2 37.5 mmHg (35-45); ABG PH Result 7.49 (7.35-7.45); Arterial Blood Gas Hematocrit 35.9 % (37-47); Base Excess ABG 4.9 mmol/L (-2.0-2.0); Blood Gas Allen Test Pos; Blood Gas Operator Identificat GD; Blood Gas Sample Site Radial, left; Blood Gas Sample Type Arterial; HCO3 ABG 28.5 mmol/L (22-26); Oxygen Device NC; PO2 ABG 81.8 mmHg (80.0-100.0)
--- NOTE | 2020-06-05 12:32 | W.ED.SOB ---
HPI - SOB/Dyspnea General: Chief Complaint: Shortness of Breath/Dyspnea Stated Complaint: SOB Time Seen by Provider: 06/05/20 11:49 Source: patient and EMS Mode of arrival: EMS Limitations: no limitations History of Present Illness: HPI Narrative: Manasa is a nice 59-year-old female who comes in with a complaint of shortness of breath. Patient has a history of COPD which she believes is flaring up. Patient also does dialysis but states that she received a full treatment yesterday. Patient denies any orthopnea or dyspnea on exertion. She has a dry cough. She denies any fevers or chills. Symptoms states her symptoms began last night. She denies any chest pain. Patient denies any loss of sense of smell or loss of sense of taste. She denies any known COVID-19 exposures. Patient is unaware of anything that makes her symptoms better or worse but does state now by the time she is here in the ER she is feeling better. Patient is unaware of any aggravating or alleviating factors. She has had similar symptoms in the past that she states were due to COPD. Associated symptoms: Deny abdominal pain, chest congestion, chest pain, diaphoresis, dizziness, extremity pain, fever(s), hemoptysis, lightheadedness, nausea, orthopnea, palpitations, syncope or vomiting Review of Systems Const: Denies: fever(s), chills, body aches, fatigue, malaise or diaphoresis Eyes: Denies: change in vision, blurry vision, blind spots, photophobia, eye discharge or eye redness ENMT: Denies: throat pain, odynophagia, hoarseness, swelling of lips/tongue, oral sores, ear or mastoid pain, ear discharge, change in hearing or nasal discharge Card: Denies: chest pain, palpitations, irregular heart rhythm, edema, lightheadedness, syncope, pre-syncope, dyspnea on exertion or orthopnea Resp: Reports: dyspnea, non-productive cough and wheezing; Denies: productive cough, hemoptysis or chest congestion GI: Denies: abdominal pain, nausea, vomiting, hematemesis, coffee ground emesis, heartburn, diarrhea, constipation, GI cramping, hematochezia or melena : Denies: flank pain, dysuria, urinary frequency, urinary urgency or hematuria Musc: Denies: neck pain, back pain, extremity pain, extremity swelling, joint pain, joint swelling, joint redness, joint warmth or joint stiffness Skin/Breast: Denies: rash, pruritus, erythema, skin tenderness or jaundice Neuro: Denies: headache(s), numbness in extremities, weakness in extremities, sensory changes, lack of coordination, difficulty walking, dizziness, vertigo, confusion, Slurred speech present or seizure-like activity Lc/Lymph: Denies: easy bruising, easy bleeding, petechiae, purpura or enlarged lymph nodes All/Imm: Denies: urticaria, throat swelling, tongue swelling, facial swelling or acute wheezing PFSH ED PFSH: Medical History Anxiety and depression Arteriovenous fistula for hemodialysis in place, primary Ascites CAD (coronary artery disease) COPD (chronic obstructive pulmonary disease) End stage renal disease on dialysis GERD (gastroesophageal reflux disease) Hep C w/o coma, chronic Hepatic cirrhosis Hepatitis C History of abdominal paracentesis Liver cirrhosis Surgical History H/O: hysterectomy Family History Other CAD (coronary artery disease) Diabetes Social History Smoking and tobacco status: heavy tobacco smoker Alcohol intake: never Substance/Drug Use: never Physical Exam Const: COMMON NORMALS: no acute distress, patient oriented x3, no limitations, healthy appearing and well nourished GENERAL APPEARANCE: cooperative, well kempt and well developed HENMT: COMMON NORMALS: normocephalic, atraumatic, external ears normal, EAC's normal and Normal external nose present HEAD & SCALP: normal to inspection, normocephalic and atraumatic FACE & SINUS: normal facial exam and face symmetric NOSE: Normal external nose present and Normal nares present EXTERNAL EAR: Yes external ears normal EXTERNAL AUDITORY CANAL: EAC's normal MOUTH: Normal oral and palatal mucosa present, lip normal and tongue normal Eye: COMMON NORMALS: Equal, round and reactive pupils present and conjunctivae normal GENERAL EYE: appearance normal, both eyes and all related structures ALIGNMENT: Yes alignment normal PERIORBITAL: periorbital findings normal EYELID: eyelids normal CONJUNCTIVA: Yes conjunctivae normal SCLERA: sclerae normal PUPIL: Yes Equal, round and reactive pupils present Neck/C-Spine: COMMON NORMALS: full ROM, no lymphadenopathy, supple, no meningeal signs and no JVD GENERAL: Yes normal visual inspection and Yes trachea midline Chest: COMMONS NORMALS: normal inspection of the chest and normal palpation of entire chest wall Resp: COMMON NORMALS: normal respiratory effort, No retractions and No use of accessory muscles EFFORT & INSPECTION: Yes able to speak in complete sentences and Yes symmetric chest movement AUSCULTATION: no crackles, no rales, no rhonchi, wheezes and diminished lung sounds Cardio: COMMON NORMALS: no JVD, regular rate, regular rhythm, S1 normal heart sound present and S2 normal heart sound present RATE: regular rate RHYTHM: regular rhythm HEART SOUNDS: S1 normal heart sound present, S2 normal heart sound present, no click, no gallops, no murmurs, no rubs and abnormal split S2 GI: COMMON NORMALS: Soft to palpation and No hepatosplenomegaly present PALPATION: Yes Soft to palpation, No Tenderness to palpation present (GI), No Guarding due to palpation present (GI), No Rigid due to palpation, Yes No hepatosplenomegaly present, No Hernia present, No Palpable mass present and No Pulsatile mass present : COMMON NORMALS: Yes no CVA tenderness BLADDER/KIDNEY EXAM: Yes no CVA tenderness EXTERNAL FEMALE EXAM: No Hernia present Back/Pelvis: COMMON NORMALS: no CVA tenderness, thoracic and lumbar spine normal to inspection, no thoracic nor lumbar tenderness and thoraco-lumbar ROM normal Extremity: COMMON NORMALS: normal to inspection, full ROM, capillary refill normal, no joint enlargement, no clubbing, cyanosis or edema and no calf tenderness Neuro: COMMON NORMALS: patient oriented x3, CN's II-XII intact bilaterally, moves all extremities, no focal motor deficits and no sensory deficits noted MENINGEAL SIGNS: Yes no meningeal signs SPEECH: speech normal Psych: COMMON NORMALS: mental status grossly normal, Normal thought process present, cooperative, normal affect, speech normal and activity/motor behavior normal APPEARANCE: Yes well kempt SPEECH: Yes normal speech THOUGHT PROCESS: Normal thought process present Skin: COMMON NORMALS: no rashes or lesions noted, turgor normal, no jaundice, no petechiae and no mottling GENERAL SKIN EXAM: no rashes or lesions noted and turgor normal Course ED course: 1325 -nursing has informed me that the patient left AGAINST MEDICAL ADVICE. She had stated from the beginning she was feeling much better. Apparently her ride showed up and could not stay for very long because she was feeling better she wanted to go home. I did not have a chance to talk to the patient before she left. I was notified of this after she had already gone and I did not get a chance to try to talk her into staying. The patient did not seem critically ill but I will have nursing call her to see if she would like to come back. I was caring for another critically ill patient in the department while this happened. Vital Signs: Vital signs: Vital Signs Temperature 97.8 F 06/05/20 13:32 Pulse Rate 80 06/05/20 13:32 Respiratory Rate 18 06/05/20 13:32 Blood Pressure 163/62 06/05/20 13:32 Pulse Oximetry 97 06/05/20 13:32 MDM - SOB/Dyspnea Lab Data: Labs: Lab Results 06/05/20 06/05/20 06/05/20 Range/Units 12:15 12:45 12:45 WBC 4.6 (4.0-10.0) 10^3/ uL RBC 3.41 L (4.1-5.3) 10^6/u L Hgb 11.3 L (11.5-15.3) g/dL Hct 35.0 L (37.0-47.0) % MCV 102.6 H (81-99) fL MCH 33.1 (28.0-34.0) pg MCHC 32.3 (30.0-36.0) g/dL RDW 13.7 (12.1-15.1) % Plt Count 121 L (130-400) 10^3/c mm MPV 10.0 (7.4-10.4) fL Neut % (Auto) 70.1 % Lymph % (Auto) 18.1 % [place] % (Auto) 9.2 % Eos % (Auto) 1.5 % Baso % (Auto) 0.7 % Neut # (Auto) 3.21 (1.8-7.7) 10^3/u L Lymph # (Auto) 0.8 (0.8-4.8) 10^3/u L [place] # (Auto) 0.4 (0.2-0.9) 10^3/u L Eos # (Auto) 0.1 (0.0-0.8) 10^3/u L Baso # (Auto) 0.0 (0.0-0.1) 10^3/u L Nucleated RBC % (a uto) 0 % Nucleated RBCs # 0.0 /100WBC PT 14.20 H (10.5-13.3) SECO NDS INR 1.06 (0.8-1.2) Specimen Type Arterial Sample Site Radial, left ABG pH 7.49 H (7.35-7.45) ABG pCO2 37.5 (35-45) mmHg ABG pO2 81.8 (80.0-100.0) mmH g ABG HCO3 28.5 H (22-26) mmol/L ABG Base Excess 4.9 H (-2.0-2.0) mmol/ L Cornel Test Pos Hematocrit 35.9 L (37-47) % O2 Delivery Device Nc O2 Liters/Min 2.0 % FiO2 28.0 % Electrician Rectifier Maintenance ID Gd Sodium (136-145) mmol/L Potassium (3.5-5.1) mmol/L Chloride (98-107) mmol/L Carbon Dioxide (22-29) mmol/L Anion Gap (5-19) BUN (6-20) mg/dL Creatinine (0.5-0.9) mg/dL GFR Calculation (90-130) mL/min Glucose (65-115) mg/dL Calculated Osmolal ity (285-295) mOsm/k g Calcium (8.5-10.5) mg/dL Magnesium (1.7-2.3) mg/dL Total Bilirubin (0.15-1.2) mg/dL AST (0-32) U/L ALT (0-33) U/L Alkaline Phosphata se (35-105) IU/L Troponin T Baselin e (0-10) ng/L Total Protein (6.6-8.7) g/dL Albumin (3.5-5.2) g/dL Globulin (1.3-4.6) g/dL 06/05/20 06/05/20 Range/Units 12:45 12:45 WBC (4.0-10.0) 10^3/ uL RBC (4.1-5.3) 10^6/u L Hgb (11.5-15.3) g/dL Hct (37.0-47.0) % MCV (81-99) fL MCH (28.0-34.0) pg MCHC (30.0-36.0) g/dL RDW (12.1-15.1) % Plt Count (130-400) 10^3/c mm MPV (7.4-10.4) fL Neut % (Auto) % Lymph % (Auto) % [place] % (Auto) % Eos % (Auto) % Baso % (Auto) % Neut # (Auto) (1.8-7.7) 10^3/u L Lymph # (Auto) (0.8-4.8) 10^3/u L [place] # (Auto) (0.2-0.9) 10^3/u L Eos # (Auto) (0.0-0.8) 10^3/u L Baso # (Auto) (0.0-0.1) 10^3/u L Nucleated RBC % (a uto) % Nucleated RBCs # /100WBC PT (10.5-13.3) SECO NDS INR (0.8-1.2) Specimen Type Sample Site ABG pH (7.35-7.45) ABG pCO2 (35-45) mmHg ABG pO2 (80.0-100.0) mmH g ABG HCO3 (22-26) mmol/L ABG Base Excess (-2.0-2.0) mmol/ L Cornel Test Hematocrit (37-47) % O2 Delivery Device O2 Liters/Min % FiO2 % Electrician Rectifier Maintenance ID Sodium 131 L (136-145) mmol/L Potassium 4.4 (3.5-5.1) mmol/L Chloride 89 L (98-107) mmol/L Carbon Dioxide 27 (22-29) mmol/L Anion Gap 19.4 H (5-19) BUN 38 H (6-20) mg/dL Creatinine 6.2 H* (0.5-0.9) mg/dL GFR Calculation 6.9 L (90-130) mL/min Glucose 137 H (65-115) mg/dL Calculated Osmolal ity 272 L (285-295) mOsm/k g Calcium 8.6 (8.5-10.5) mg/dL Magnesium 2.3 (1.7-2.3) mg/dL Total Bilirubin 0.2 (0.15-1.2) mg/dL AST 66 H (0-32) U/L ALT 57 H (0-33) U/L Alkaline Phosphata se 146 H (35-105) IU/L Troponin T Baselin e 58 H (0-10) ng/L Total Protein 6.6 (6.6-8.7) g/dL Albumin 3.9 (3.5-5.2) g/dL Globulin 2.7 (1.3-4.6) g/dL Imaging Data^: CXR: Attestation: I personally reviewed and interpreted this imaging study as follows: My impression: Cardiomegaly but no acute cardiopulmonary findings. EKG Data^: EKG 1: Attestation: I personally reviewed and interpreted this EKG as follows: EKG Interpretation Date: 06/05/20 EKG interpretation time: 12:21 Interpretation: Normal sinus rhythm at 72 beats a minute, incomplete right bundle branch block, PVCs, no other acute ST or T wave changes. Discharge Plan Discharge Patient Disposition: Left Against Medical Advice Clinical Impression: Acute exacerbation of chronic obstructive airways disease Condition: Stable Prescriptions: No Action sodium bicarbonate 650 mg Tablet 650 mg PO BID RF: 0 nifedipine 60 mg Tablet Extended Release 60 mg PO BEDTIME RF: 0 metoprolol tartrate 100 mg Tablet 100 mg PO DAILY RF: 0 glucosamine sulfate [Glucosamine] 500 mg Tablet 500 mg PO DAILY RF: 0 ergocalciferol (vitamin D2) 1,250 mcg (50,000 unit) Capsule 1,250 mcg PO Q7D RF: 0 alpha lipoic acid 100 mg Capsule 100 mg PO DAILY RF: 0 ipratropium-albuterol 0.5 mg-3 mg(2.5 mg base)/3 mL solution for nebulization See Rx Instructions .ROUTE .COMPLEX RF: 0 Referrals: Rose Marie Riojas DO [Primary Care Provider] - Coding Level of Care Code ED Application Coordinator for Chg Fwd Exam Comprehensive
[2020-06-05] MEDS: doxycycline 100 mg Tablet 200 MG PO (12:46)
[2020-06-05] MEDS: ondansetron 2 mg/ML SDV 2 mL 4 MG IVP (12:46)
[2020-06-05 12:47] VITALS: BP 168/62; PULSE 82; RESP 12; O2SAT 97
[2020-06-05 12:52] LABS: Basophils % 0.7 %; Eosinophils # 0.1 10^3/uL (0.0-0.8); Eosinophils % 1.5 %; Hemoglobin 11.3 g/dL (11.5-15.3); Lymphocytes # 0.8 10^3/uL (0.8-4.8); Lymphocytes % 18.1 %; Mean Corpuscular HGB Conc 32.3 g/dL (30.0-36.0); Mean Corpuscular Hemoglobin 33.1 pg (28.0-34.0); Mean Corpuscular Volume 102.6 fL (81-99); Monocytes # 0.4 10^3/uL (0.2-0.9); Monocytes % 9.2 %; Neutrophils # 3.21 10^3/uL (1.8-7.7); Neutrophils % 70.1 %; Nucleated Red Blood Cells % 0 %; Platelet Count 121 10^3/cmm (130-400); Red Blood Count 3.41 10^6/uL (4.1-5.3); Red Cell Distribution Width 13.7 % (12.1-15.1); White Blood Count 4.6 10^3/uL (4.0-10.0)
[2020-06-05 13:01] LABS: INR 1.06 (0.8-1.2)
[2020-06-05 13:09] LABS: Alanine Aminotransferase 57 U/L (0-33); Albumin Level 3.9 g/dL (3.5-5.2); Alkaline Phosphatase 146 IU/L (35-105); Anion Gap 19.4 (5-19); Aspartate Amino Transferase 66 U/L (0-32); Blood Urea Nitrogen 38 mg/dL (6-20); Calcium 8.6 mg/dL (8.5-10.5); Carbon Dioxide 27 mmol/L (22-29); Chloride 89 mmol/L (98-107); Globulin 2.7 g/dL (1.3-4.6); Glomerular Filtration Rate 6.9 mL/min (90-130); Glucose 137 mg/dL (65-115); Magnesium 2.3 mg/dL (1.7-2.3); Osmolality Calculated 272 mOsm/kg (285-295); Potassium 4.4 mmol/L (3.5-5.1); Sodium 131 mmol/L (136-145); Total Bilirubin 0.2 mg/dL (0.15-1.2); Total Protein 6.6 g/dL (6.6-8.7)
[2020-06-05 13:11] LABS: Troponin(5th) Baseline 58 ng/L (0-10)
--- NOTE | 2020-06-05 13:23 | PC.NURSE ---
Pt wanted to leave because her ride was here and she was worried about her dogs. Signed AMA form and understood the significant of leaving my cause to her health. She wanted to leave any way.
[2020-06-05 13:32] VITALS: BP 163/62; PULSE 80; RESP 18; TEMP 36.6; O2SAT 97
== END 2020-06-05 13:40 | disposition left against medical advice (07) ==
PROVIDERS: Emergency Provider Emergency Medicine; PCP Family Medicine
DX: J44.1 Chronic obstructive pulmonary disease with (acute) exacerbation (principal); Z53.21 Procedure and treatment not carried out due to patient leaving prior to being seen by health care provider; I25.10 Atherosclerotic heart disease of native coronary artery without angina pectoris; N18.6 End stage renal disease; Z99.2 Dependence on renal dialysis; Z86.19 Personal history of other infectious and parasitic diseases; F17.210 Nicotine dependence, cigarettes, uncomplicated
CPT/HCPCS: 12345; 36600; 71045; 80053; 82803; 83735; 84484; 85025; 85610; 87040; 93005; 94640; 96374; 96375; 99283; 99284; J2405; J2930

== ENCOUNTER 2020-06-10 08:21 | Outpatient (RCR) | payer MEDICARE, SELFPAY ==
[2020-06-10 08:45] VITALS: BP 122/68; PULSE 72; RESP 20; TEMP 36.7; O2SAT 94
--- NOTE | 2020-06-10 08:51 | US_ITS ---
WS: [id number] ULTRASOUND-GUIDED THERAPEUTIC PARACENTESIS Procedure, risks, and complications have been explained to the patient. Consent is obtained. Utilizing aseptic technique and 1% buffered lidocaine, a small dermatome was made through which a 5 F rench Yueh catheter was inserted. Approximately 2200 ml of clear peritoneal fluid was obtained witho ut difficulty. No complications encountered. US/US paracentesis abd w [id number] IMPRESSION: Uncomplicated paracentesis yielding 2200 ml of peritoneal fluid.
[2020-06-10 10:19] VITALS: BP 151/66; PULSE 74; RESP 18; O2SAT 98
[2020-06-10] MEDS: ondansetron 2 mg/ML SDV 2 mL 4 MG IVP (10:35)
--- NOTE | 2020-06-10 10:36 | SUR.OPER ---
PT TOLERATED PARACENTESIS FAIR.PT WITH NAUSEA. Dr STILL'S OFFICE CONTACTED AND TO FOR ZOFRAN 4MG IV WAS OBTAINED.
== END 2020-07-07 23:59 | disposition home or self-care (01) ==
LOC: OPS 08:21
PROVIDERS: PCP Family Medicine; Visit Provider Internal Medicine Nephrology
DX: R18.8 Other ascites (principal); K74.60 Unspecified cirrhosis of liver; R11.0 Nausea
CPT/HCPCS: 49083; 96365; 96375; J1642; J2405; P9047

== ENCOUNTER 2020-06-11 15:48 | Inpatient (IN) | payer MEDICARE, MEDICAID, SELFPAY ==
[2020-06-11] VITALS (12 sets, daily range): BP systolic 197–240; BP diastolic 79–133; PULSE 24–88; RESP 13–21; TEMP 36.7; O2SAT 93–98; BMI 29.8
--- NOTE | 2020-06-11 16:28 | XRR_ITS ---
PROCEDURE INFORMATION: Exam: XR Chest, 1 View Exam date and time: 06/11/2020 5:05 PM Age: 59 years old Clinical indication: Cough and dyspnea; Prior surgery; Surgery type: Port; Patient HX: Dialysis patient; Additional info: Dyspnea/cough TECHNIQUE: Imaging protocol: XR of the chest Views: 1 view. COMPARISON: CR XR chest 1V portable [id number] 06/05/2020 11:55 AM FINDINGS: Lungs: Accentuation of minor interstitial opacities in the lower lungs. Minor blunting at the right costophrenic angle. Pleural space: See Lungs finding. Heart/Mediastinum: Cardiomegaly. Vasculature: [id number] overlies the left chest with lead tip position superior vena cava. Bones/joints: Unremarkable. XR/XR chest 1V portable [id number] IMPRESSION: 1. Minor interstitial opacities of lower lungs. 2. Cardiomegaly.
--- NOTE | 2020-06-11 17:46 | ED_ITS ---
Documented by User: Derek Mejia DO 06/14/20 08:06 HPI - Female Genitourinary General: Chief complaint: Urogenital-Female Stated complaint: SENT OVER BY DOCTOR Time Seen by Provider: 06/11/20 17:24 History of Present Illness: HPI Narrative: 59-year-old female end-stage renal disease she missed dialysis today because her daughter had her car and she could not get to dialysis. She usually goes Tuesday. She went to the [facility] evidently was evaluated and advised to come to the emergency room here. She denies any recent illness fever sweats or chills no leg cramping or swelling. No muscle cramps or aches or palpitations. Associated symptoms: Deny abdominal pain, short of breath, fevers/chills, headache(s), nausea, seizures, syncope or weakness Treatment prior to arrival: none Review of Systems Const: Denies: fever(s), chills, body aches, change in appetite, fatigue or malaise ENMT: Denies: throat pain, ear or mastoid pain, nasal discharge or nasal congestion Card: Denies: syncope Resp: Denies: dyspnea, productive cough or non-productive cough GI: Denies: abdominal pain or nausea : Denies: flank pain, difficulty voiding, dysuria, urinary frequency or urinary urgency Skin/Breast: Denies: rash or pruritus Neuro: Denies: headache(s) PFS ED PFSH: Medical History Anxiety and depression Arteriovenous fistula for hemodialysis in place, primary Ascites CAD (coronary artery disease) COPD (chronic obstructive pulmonary disease) End stage renal disease on dialysis GERD (gastroesophageal reflux disease) Hep C w/o coma, chronic Hepatic cirrhosis Hepatitis C History of abdominal paracentesis Liver cirrhosis Surgical History H/O: hysterectomy Family History Other CAD (coronary artery disease) Diabetes Social History (Updated 06/11/20 @ 20:10 by Brendan Robb MD) Smoking and tobacco status: former smoker Alcohol intake: never Physical Exam Const: COMMON NORMALS: no acute distress GENERAL APPEARANCE: cooperative and comfortable ORIENTATION/CONSCIOUSNESS: Yes awake, Yes oriented to person, Yes oriented to place and Yes oriented to time HENMT: COMMON NORMALS: normocephalic and atraumatic HEAD & SCALP: normocephalic and atraumatic Eye: COMMON NORMALS: Equal, round and reactive pupils present, EOMs intact bilaterally, conjunctivae normal and no scleral icterus CONJUNCTIVA: Yes conjunctivae normal PUPIL: Yes Equal, round and reactive pupils present Neck/C-Spine: COMMON NORMALS: full ROM, no lymphadenopathy, supple and no JVD Lymph: LYMPHATIC: no lymphadenopathy noted and no lymphedema noted Resp: COMMON NORMALS: normal respiratory effort, No retractions, No use of accessory muscles and clear to auscultation bilaterally AUSCULTATION: clear to auscultation bilaterally Cardio: COMMON NORMALS: no JVD, regular rate, regular rhythm and No murmurs present (Cardio) RATE: regular rate RHYTHM: regular rhythm GI: COMMON NORMALS: Soft to palpation and No hepatosplenomegaly present AUSCULTATION: Yes normoactive bowel sounds PALPATION: Yes Soft to palpation, No Tenderness to palpation present (GI), No Guarding due to palpation present (GI) and Yes No hepatosplenomegaly present Extremity: COMMON NORMALS: normal to inspection, capillary refill normal, no clubbing, cyanosis or edema, no calf tenderness and no pedal edema Neuro: SENSORIUM/ORIENTATION: Yes oriented to person, Yes oriented to place and Yes oriented to time Skin: COMMON NORMALS: no rashes or lesions noted GENERAL SKIN EXAM: no rashes or lesions noted Course Vital Signs: Vital signs: Vital Signs Temperature 98.1 F 06/11/20 15:59 Pulse Rate 78 06/12/20 09:30 Respiratory Rate 16 06/12/20 09:30 Blood Pressure 170/77 06/12/20 09:00 Pulse Oximetry 95 06/12/20 09:00 MDM - Female MDM Narrative: Medical decision making narrative: Labs pending care turned over to Dr. Hastings at change of shift. Lab Data: Labs: Lab Results 06/11/20 06/11/20 06/11/20 Range/Units 17:27 17:40 17:40 WBC 6.7 (4.0-10.0) 10^3/ uL RBC 3.45 L (4.1-5.3) 10^6/u L Hgb 11.1 L (11.5-15.3) g/dL Hct 35.0 L (37.0-47.0) % MCV 101.4 H (81-99) fL MCH 32.2 (28.0-34.0) pg MCHC 31.7 (30.0-36.0) g/dL RDW 13.5 (12.1-15.1) % Plt Count 97 L (130-400) 10^3/c mm MPV 10.1 (7.4-10.4) fL Neut % (Auto) 73.5 % Lymph % (Auto) 17.0 % Irion % (Auto) 5.6 % Eos % (Auto) 2.4 % Baso % (Auto) 0.3 % Neut # (Auto) 4.89 (1.8-7.7) 10^3/u L Lymph # (Auto) 1.1 (0.8-4.8) 10^3/u L Irion # (Auto) 0.4 (0.2-0.9) 10^3/u L Eos # (Auto) 0.2 (0.0-0.8) 10^3/u L Baso # (Auto) 0.0 (0.0-0.1) 10^3/u L Nucleated RBC % (a uto) 0 % Nucleated RBCs # 0.0 /100WBC Sodium 130 L (136-145) mmol/L Potassium 6.8 H* (3.5-5.1) mmol/L Chloride 93 L (98-107) mmol/L Carbon Dioxide 19 L (22-29) mmol/L Anion Gap 24.8 H (5-19) BUN 93 H* D (6-20) mg/dL Creatinine 10.3 H* (0.5-0.9) mg/dL GFR Calculation 3.9 L (90-130) mL/min Glucose 87 (65-115) mg/dL Calculated Osmolal ity 270 L (285-295) mOsm/k g Calcium 8.0 L (8.5-10.5) mg/dL Total Bilirubin 0.3 (0.15-1.2) mg/dL AST 40 H (0-32) U/L ALT 45 H (0-33) U/L Alkaline Phosphata se 153 H (35-105) IU/L Total Protein 6.6 (6.6-8.7) g/dL Albumin 4.0 (3.5-5.2) g/dL Globulin 2.6 (1.3-4.6) g/dL Urine Color Yellow (Yellow) Urine Appearance Clear (CLEAR) Urine pH 8 H (5-7) Ur Specific Gravit y 1.010 (1.005-1.030) Urine Protein 1+ H (Negative) Urine Glucose (UA) Norm (Normal) Urine Ketones Negative (Negative) Urine Blood Neg (Negative) Urine Nitrate Negative (Negative) Urine Bilirubin Neg (NEGATIVE) Urine Urobilinogen Neg (Negative) mg/dL Ur Leukocyte Monie ase Negative (Negative) Urine RBC None (0-2) /hpf Urine WBC None (0-5) /hpf Ur Squamous Epith Cells 0-4 H (0-5) Amorphous Sediment Not Reportable Urine Bacteria Trace (NONE) Discharge Plan Discharge Patient Disposition: Placed in Observation Admit Provider: Brendan Robb Clinical Impression: Acute hyperkalemia, End stage renal disease on dialysis Condition: Stable Referrals: Rose Marie Riojas DO [Primary Care Provider] - 4-7 days (your appointment has been scheduled at [facility] for appointment time June 17, 2020Tuesday .time of 10:00 am will see Myriam masters. ) Discharge Diet: Usual diet Discharge Activity: Resume usual activity Patient Instructions: Chronic Kidney Disease (DC), Hyperkalemia (DC) Discharge Date/Time: 06/11/20 21:08 Coding Level of Care Code ED Accounting Auditor for Chg Fwd Exam Comprehensive Documented by User: Ciera Bolton 06/12/20 04:03 HPI - Female Genitourinary General: Chief complaint: Urogenital-Female Stated complaint: SENT OVER BY DOCTOR Time Seen by Provider: 06/11/20 17:24 PFSH ED PFSH: Medical History Anxiety and depression Arteriovenous fistula for hemodialysis in place, primary Ascites CAD (coronary artery disease) COPD (chronic obstructive pulmonary disease) End stage renal disease on dialysis GERD (gastroesophageal reflux disease) Hep C w/o coma, chronic Hepatic cirrhosis Hepatitis C History of abdominal paracentesis Liver cirrhosis Surgical History H/O: hysterectomy Family History Other CAD (coronary artery disease) Diabetes Social History (Updated 06/11/20 @ 20:10 by Brendan Robb MD) Smoking and tobacco status: former smoker Alcohol intake: never Course Vital Signs: Vital signs: Vital Signs Temperature 98.1 F 06/11/20 15:59 Pulse Rate 78 06/12/20 09:30 Respiratory Rate 16 06/12/20 09:30 Blood Pressure 170/77 06/12/20 09:00 Pulse Oximetry 95 06/12/20 09:00 MDM - Female MDM Narrative: Medical decision making narrative: 1819 -patient's chemistries returned with potassium of 6.8. She will not be able to wait for dialysis. I have paged nephrology and try to secure dialysis bed with the warehouse logistics coordinator. I am giving the patient the hyperkalemic cocktail consisting of albuterol, insulin, glucose, sodium bicarbonate and Lasix. I will repeat a chemistry here in the ER if we cannot expedite getting her to dialysis. Clinically the patient is stable with stable vital signs. 194 -the case was reviewed previously with Dr. Robb he agreed to admission to the ICU for dialysis. Still awaiting that bed. The case was reviewed with Dr. Walker, on-call for nephrology. He agrees to arrange for emergent dialysis. He understands the patient's been given hyperkalemic treatment and a repeat BMP will be drawn at 8 PM precisely and he will follow-up on those results. Currently the patient remains asymptomatic with a stable heart rate, stable vital signs and her EKG on the telemetry looks more narrow complex with less peaked T waves in comparison to her twelve-lead EKG from before. Lab Data: Labs: Lab Results 08/05/20 08/05/20 08/05/20 Range/Units 17:27 17:40 17:40 WBC 6.7 (4.0-10.0) 10^3/ uL RBC 3.45 L (4.1-5.3) 10^6/u L Hgb 11.1 L (11.5-15.3) g/dL Hct 35.0 L (37.0-47.0) % MCV 101.4 H (81-99) fL MCH 32.2 (28.0-34.0) pg MCHC 31.7 (30.0-36.0) g/dL RDW 13.5 (12.1-15.1) % Plt Count 97 L (130-400) 10^3/c mm MPV 10.1 (7.4-10.4) fL Neut % (Auto) 73.5 % Lymph % (Auto) 17.0 % Irion % (Auto) 5.6 % Eos % (Auto) 2.4 % Baso % (Auto) 0.3 % Neut # (Auto) 4.89 (1.8-7.7) 10^3/u L Lymph # (Auto) 1.1 (0.8-4.8) 10^3/u L Irion # (Auto) 0.4 (0.2-0.9) 10^3/u L Eos # (Auto) 0.2 (0.0-0.8) 10^3/u L Baso # (Auto) 0.0 (0.0-0.1) 10^3/u L Nucleated RBC % (a uto) 0 % Nucleated RBCs # 0.0 /100WBC Sodium 130 L (136-145) mmol/L Potassium 6.8 H* (3.5-5.1) mmol/L Chloride 93 L (98-107) mmol/L Carbon Dioxide 19 L (22-29) mmol/L Anion Gap 24.8 H (5-19) BUN 93 H* D (6-20) mg/dL Creatinine 10.3 H* (0.5-0.9) mg/dL GFR Calculation 3.9 L (90-130) mL/min Glucose 87 (65-115) mg/dL Calculated Osmolal ity 270 L (285-295) mOsm/k g Calcium 8.0 L (8.5-10.5) mg/dL Total Bilirubin 0.3 (0.15-1.2) mg/dL AST 40 H (0-32) U/L ALT 45 H (0-33) U/L Alkaline Phosphata se 153 H (35-105) IU/L Total Protein 6.6 (6.6-8.7) g/dL Albumin 4.0 (3.5-5.2) g/dL Globulin 2.6 (1.3-4.6) g/dL Urine Color Yellow (Yellow) Urine Appearance Clear (CLEAR) Urine pH 8 H (5-7) Ur Specific Gravit y 1.010 (1.005-1.030) Urine Protein 1+ H (Negative) Urine Glucose (UA) Norm (Normal) Urine Ketones Negative (Negative) Urine Blood Neg (Negative) Urine Nitrate Negative (Negative) Urine Bilirubin Neg (NEGATIVE) Urine Urobilinogen Neg (Negative) mg/dL Ur Leukocyte Monie ase Negative (Negative) Urine RBC None (0-2) /hpf Urine WBC None (0-5) /hpf Ur Squamous Epith Cells 0-4 H (0-5) Amorphous Sediment Not Reportable Urine Bacteria Trace (NONE) EKG Data: EKG 1: Attestation: I personally reviewed and interpreted this EKG as follows: EKG Data: 06/11/20 EKG interpretation time: 19:16 Interpretation: Normal sinus rhythm at 74 beats a minute, right bundle branch block, peaked T waves. Discharge Plan Discharge Patient Disposition: Placed in Observation Admit Provider: Brendan Robb Clinical Impression: Acute hyperkalemia, End stage renal disease on dialysis Condition: Stable Referrals: Rose Marie Riojas DO [Primary Care Provider] - 4-7 days (your appointment has been scheduled at [facility] for appointment time June 17, 2020Tuesday .time of 10:00 am will see Myriam akhtar ) Discharge Diet: Usual diet Discharge Activity: Resume usual activity Patient Instructions: Chronic Kidney Disease (DC), Hyperkalemia (DC) Discharge Date/Time: 06/11/20 21:08 Coding Level of Care Code ED Accounting Auditor for g Fwd Exam Comprehensive
[2020-06-11 17:55] LABS: Basophils % 0.3 %; Eosinophils # 0.2 10^3/uL (0.0-0.8); Eosinophils % 2.4 %; Hemoglobin 11.1 g/dL (11.5-15.3); Lymphocytes # 1.1 10^3/uL (0.8-4.8); Mean Corpuscular HGB Conc 31.7 g/dL (30.0-36.0); Mean Corpuscular Hemoglobin 32.2 pg (28.0-34.0); Mean Corpuscular Volume 101.4 fL (81-99); Mean Platelet Volume 10.1 fL (7.4-10.4); Monocytes # 0.4 10^3/uL (0.2-0.9); Monocytes % 5.6 %; Neutrophils # 4.89 10^3/uL (1.8-7.7); Neutrophils % 73.5 %; Nucleated Red Blood Cells % 0 %; Platelet Count 97 10^3/cmm (130-400); Red Blood Count 3.45 10^6/uL (4.1-5.3); Red Cell Distribution Width 13.5 % (12.1-15.1); White Blood Count 6.7 10^3/uL (4.0-10.0)
[2020-06-11 18:15] LABS: Alanine Aminotransferase 45 U/L (0-33); Alkaline Phosphatase 153 IU/L (35-105); Anion Gap 24.8 (5-19); Aspartate Amino Transferase 40 U/L (0-32); Carbon Dioxide 19 mmol/L (22-29); Chloride 93 mmol/L (98-107); Globulin 2.6 g/dL (1.3-4.6); Glomerular Filtration Rate 3.9 mL/min (90-130); Glucose 87 mg/dL (65-115); Osmolality Calculated 270 mOsm/kg (285-295); Sodium 130 mmol/L (136-145); Total Bilirubin 0.3 mg/dL (0.15-1.2); Total Protein 6.6 g/dL (6.6-8.7)
[2020-06-11 18:27] LABS: Blood Urea Nitrogen 93 mg/dL (6-20); Potassium 6.8 mmol/L (3.5-5.1)
--- NOTE | 2020-06-11 18:29 | ECG_ITS ---
[facility] Test Date: 2020-06-11 Pat Name: Manasa Monreal Department: Room: Gender: Female Stabilizer Operator: : 1960 Requested By: Ciera Mckinney Order Number: [id number] Nithya MD: Aniya Matos M.D. Measurements Intervals [place] Rate: 74 P: 77 IA: 156 QRS: 89 QRSD: 158 T: 61 QT: 437 QTc: 487 Interpretive Statements SINUS RHYTHM RIGHT BUNDLE BRANCH BLOCK [120+ ms QRS DURATION, UPRIGHT V1, 40+ ms S IN I/aVL/V4/V5/V6] Compared to ECG 06/05/2020 12:21:57 Ventricular premature complex(es) no longer present Electronically Signed On 06-12-2020 21:04:44 CDT by Aniya Matos M.D. [email or web address]
[2020-06-11] MEDS: insulin regular-human 100 units/1 mL 10 UNIT IVP (19:22)
[2020-06-11] MEDS: FUROsemide 10 mg/mL SDV 4mL 40 MG IVP (19:27)
[2020-06-11] MEDS: dextrose 50% syringe 50 mL 100 ML IVP (19:27)
[2020-06-11] MEDS: sodium bicarbonate 8.4% 1 mEq/mL 50mL Syr 75 MEQ IVP (19:27)
[2020-06-11] MEDS: calcium gluconate 0.1 gm/mL 10% SDV 10mL 1 GM IVP (19:38)
--- NOTE | 2020-06-11 20:05 | P.HP_ITS ---
Providers/Chief Complaint Admitting Physician: Brendan Robb MD Primary Care Provider: Rose Marie Riojas DO Chief Complaint: SENT OVER BY DOCTOR History of Present Illness Manasa Monreal is a 59 year old female who presents to the hospital with history of missing dialysis x2. She states she feels little short of breath, and has been nauseated and would like to get dialysis now. This has happened before. Her last dialysis was on Tuesday. She missed dialysis Tuesday as she reports she had no transportation. She states she went to dialysis Tuesday morning but she reports she was told that they thought she had quit. No fever. No exposure to COVID. States she has occasional loose stool but no blood. She states she is not going to go AMA right after dialysis. No chest pain or palpitations. Received paracentesis yesterday for cirrhosis with ascites. She receives this intermittently. In the emergency department calcium, insulin glucose, neb was given for hype rkalemia. Review of Systems General: Reports: 10 or more systems reviewed and unremarkable except in HPI and below Const: Denies: fever(s) or chills Eyes: Denies: change in vision ENMT: Denies: throat pain Card: Denies: chest pain Resp: Reports: dyspnea GI: Reports: nausea : Denies: flank pain Musc: Denies: neck pain Skin/Breast: Denies: rash Neuro: Denies: headache(s) Psych: Denies: anxiety Endo: Denies: polyuria Lc/Lymph: Denies: easy bruising All/Imm: Denies: urticaria Medications/Allergies Home Medications Medication Instructions Recorded Confirmed Last Taken Type glucosamine sulfate [Glucosamine] See Rx Instructions .ROUTE .COMPLEX 03/10/20 06/11/20 06/11/20 History metoprolol tartrate 100 mg PO BID 03/10/20 06/11/20 06/11/20 History alpha lipoic acid See Rx Instructions .ROUTE .COMPLEX 03/18/20 06/11/20 06/11/20 History ergocalciferol (vitamin D2) 1,250 mcg PO Q7D 03/18/20 06/11/20 06/02/20 History ipratropium-albuterol 3 ml INHALATION QID PRN 04/22/20 06/11/20 06/10/20 History nifedipine 120 mg PO BEDTIME 05/15/20 06/11/20 06/10/20 History sodium bicarbonate 650 mg PO BID 05/15/20 06/11/20 06/05/20 History cetirizine [Zyrtec] 10 mg PO DAILY PRN 06/11/20 06/11/20 Unknown History hydroxyzine pamoate 25 - 50 mg PO DAILY PRN 06/11/20 06/11/20 06/11/20 History 50 mg ondansetron HCl [Zofran] 4 mg PO QID PRN 06/11/20 06/11/20 06/11/20 History pantoprazole [Protonix] 40 mg PO DAILY 06/11/20 06/11/20 06/11/20 History sevelamer carbonate [Renvela] 3,200 mg PO TID 06/11/20 06/11/20 Unknown History vit B,V-FI-mqfd-selen-vit D3-E 1 tab PO DAILY 06/11/20 06/11/20 06/11/20 History [RenaPlex-D] Allergies Allergy/AdvReac Type Severity Reaction Status Date / Time trazodone Allergy Unknown Unknown Verified 06/11/20 17:50 codeine Allergy ADR-Itching Verified 06/11/20 17:50 Penicillins Allergy ALGY-Swell Verified 06/11/20 17:50 Lip/Tongue/Throat PFSH Acute PFSH: Medical History Anxiety and depression Arteriovenous fistula for hemodialysis in place, primary Ascites CAD (coronary artery disease) COPD (chronic obstructive pulmonary disease) End stage renal disease on dialysis GERD (gastroesophageal reflux disease) Hep C w/o coma, chronic Hepatic cirrhosis Hepatitis C History of abdominal paracentesis Liver cirrhosis Surgical History H/O: hysterectomy Family History Other CAD (coronary artery disease) Diabetes Social History (Updated 06/11/20 @ 20:10 by Brendan Robb MD) Smoking and tobacco status: former smoker Alcohol intake: never Vitals/I&O/Wt Last Vital Signs Temp 98.1 F 06/11/20 15:59 Pulse 79 06/11/20 19:36 Resp 18 06/11/20 19:32 BP 201/79 06/11/20 19:32 Pulse Ox 97 06/11/20 19:32 Weight last 48 hrs Weight 78.925 kg Physical Exam Narrative: EXAM NARRATIVE: General exam no apparent distress, sitting up in bed and asking for something to eat HEENT pupils equally round. Oropharynx clear. Neck is supple no lymphadenopathy or thyromegaly Cardiovascular regular rate and rhythm. No murmur. Lungs clear no wheezing or crackles Abdomen is soft, hepatic enlargement is noted. Hernia right lower midline, easily reducible and nontender deferred Extremities no cyanosis clubbing or edema, AV fistula with thrill and bruit present right upper extremity. Skin no rash Neuro no focal deficits. Data : 06/11/20 17:40 06/11/20 20:00 Other data: Liver function tests elevated chronically, without change from previous. Urinalysis pending Chest x-ray per my read slight amount of fluid overload, evidence of COPD, port noted. No evidence of infiltrate. EKG demonstrates sinus rhythm, normal axis, widened QRS complex at 158 ms, right bundle branch block. A&P Assessment and plan (1) Acute hyperkalemia: Appropriate treatment has been given in the emergency department with calcium, insulin and glucose, albuterol Nephrology consult for acute dialysis ICU admission, for acute dialysis Previous EKGs with some right bundle and QRS widening but during this event she also had missed dialysis and was hyperkalemic Status: Acute (2) End stage renal disease on dialysis: Noncompliance with scheduled dialysis Dialysis will be given acutely discussed with patient the risk of and/or permanent disability from missing dialysis Status: Acute Additional A&P Information History of hepatitis C with cirrhosis, needing intermittent paracentesis Noncompliance, especially with dialysis Former tobacco dependency Mild hyponatremia Chronic anemia likely related to renal failure COPD, with no evidence of exacerbation Coronary artery disease, asymptomatic currently Multiple other medical problems as noted in her past medical history Heparin for DVT prophylaxis Full code Attestations Medical Necessity Statement*: Will need greater than 2 midnight stay for fluid overload, hyperkalemia, missed dialysis Time Spent in Patient Care: Greater than 35 minutes Critical Care Time: 35 minutes spent in direct patient care in this patient with hyperkalemia, QRS widening, with threat for decompensation secondary to mi ssed dialysis. Coding Level of Care Code Acute Room Service Food Service Attendant for Chg Fwd Diagnoses Acute hyperkalemia E87.5 End stage renal disease on dialysis N18.6; Z99.2
[2020-06-11 20:16] LABS: Add Urine Microscopic? YES; Bilirubin Urine Neg (NEGATIVE); Blood Urine Neg (Negative); Glucose Urine UA Norm (Normal); Ketones Urine Negative (Negative); Leukocyte Esterase Urine Negative (Negative); Nitrate Urine Negative (Negative); Protein Urine 1+ (Negative); Urine Appearance Clear (CLEAR); Urine Color Yellow (Yellow); Urobilinogen Urine Neg (Negative); pH Urine 8 (5-7)
[2020-06-11 20:17] LABS: Add Urine Culture? No; Bacteria Urine TRACE; Squamous Epithelial Cell Urine 0-4 (0-5)
[2020-06-11 20:46] LABS: Anion Gap 24.8 (5-19); Calcium 8.5 mg/dL (8.5-10.5); Carbon Dioxide 21 mmol/L (22-29); Chloride 92 mmol/L (98-107); Creatinine Clr Calc Pharmacy 5.9365; Glomerular Filtration Rate 3.8 mL/min (90-130); Glucose 129 mg/dL (65-115); Osmolality Calculated 276 mOsm/kg (285-295); Potassium 5.8 mmol/L (3.5-5.1); Sodium 132 mmol/L (136-145)
[2020-06-11 20:56] LABS: Blood Urea Nitrogen 94 mg/dL (6-20)
--- NOTE | 2020-06-11 21:25 | PM.CONSULT ---
Providers/Reason For Consult Consulting Physican/Specialty*: Nephro Reason for Consult*: eval for ESRD mgmt Attending Physician: Brendan Robb MD Primary Care Provider: Rose Marie Riojas DO History of Present Illness History of Present Illness Manasa Monreal is a 59 year old female with history of CAD, states that she has had 2 myocardial infarcts, COPD, current smoker, liver cirrhosis, hepatitis C, end-stage renal disease on dialysis, hypertension, who presents to [facility] due to complaints of shortness of breath. AVF working well. Last paracentesis yesterday s/p 2.5L. Usually on HD for 3hrs. Bp high, missed evening pills. Review of Systems General: Reports: 10 or more systems reviewed and unremarkable except in HPI and below Meds/Allergies Home Medications and Allergies Home Medications Medication Instructions Recorded Confirmed Last Taken Type glucosamine sulfate [Glucosamine] See Rx Instructions .ROUTE .COMPLEX 03/10/20 06/11/20 06/11/20 History metoprolol tartrate 100 mg PO BID 03/10/20 06/11/20 06/11/20 History alpha lipoic acid See Rx Instructions .ROUTE .COMPLEX 03/18/20 06/11/20 06/11/20 History ergocalciferol (vitamin D2) 1,250 mcg PO Q7D 03/18/20 06/11/20 06/02/20 History ipratropium-albuterol 3 ml INHALATION QID PRN 04/22/20 06/11/20 06/10/20 History nifedipine 120 mg PO BEDTIME 05/15/20 06/11/20 06/10/20 History sodium bicarbonate 650 mg PO BID 05/15/20 06/11/20 06/05/20 History cetirizine [Zyrtec] 10 mg PO DAILY PRN 06/11/20 06/11/20 Unknown History hydroxyzine pamoate 25 - 50 mg PO DAILY PRN 06/11/20 06/11/20 06/11/20 History 50 mg ondansetron HCl [Zofran] 4 mg PO QID PRN 06/11/20 06/11/20 06/11/20 History pantoprazole [Protonix] 40 mg PO DAILY 06/11/20 06/11/20 06/11/20 History sevelamer carbonate [Renvela] 3,200 mg PO TID 06/11/20 06/11/20 Unknown History vit B,M-VW-ubya-selen-vit D3-E 1 tab PO DAILY 06/11/20 06/11/20 06/11/20 History [RenaPlex-D] Allergies Allergy/AdvReac Type Severity Reaction Status Date / Time trazodone Allergy Unknown Unknown Verified 06/11/20 17:50 codeine Allergy ADR-Itching Verified 06/11/20 17:50 Penicillins Allergy ALGY-Swell Verified 06/11/20 17:50 Lip/Tongue/Throat PFSH Acute PFSH: Medical History Anxiety and depression Arteriovenous fistula for hemodialysis in place, primary Ascites CAD (coronary artery disease) COPD (chronic obstructive pulmonary disease) End stage renal disease on dialysis GERD (gastroesophageal reflux disease) Hep C w/o coma, chronic Hepatic cirrhosis Hepatitis C History of abdominal paracentesis Liver cirrhosis Surgical History H/O: hysterectomy Family History Other CAD (coronary artery disease) Diabetes Social History (Updated 06/11/20 @ 20:10 by Brendan Robb MD) Smoking and tobacco status: former smoker Alcohol intake: never Vitals/I&O/Wt Last Vital Signs Temp 98.1 F 06/11/20 15:59 Pulse 24 L 06/11/20 21:00 Resp 18 06/11/20 19:32 BP 201/79 06/11/20 19:32 Pulse Ox 93 06/11/20 21:00 Weight last 48 hrs Weight 78.925 kg Physical Exam Narrative: EXAM NARRATIVE: Exam performed via telemed. HEENT: Wet mucosa, no jvp Lungs: CTABL CVS S1 S2 Abdo: Soft, BS ok Ext x 4: Minimal edema A&P Additional A&P Information 1. ESRD - Will do stat dialysis this evening for critically elevated K - 2K bath, 2.5L UF - am eval for additional dialysis, but may dialyze her again on Tuesday - dose meds for eGFr < 15 on dialysis 2. Hypertension - dialysis will help, will need to take home meds also - further titration of meds during hospital stay 3. Other chronic dialysis issues to be addressed in dialysis clinic inc anemia, bone metabolism etc - warned of the dangers of missing dialysis and developing critical hyperkalemia - thanks Consult Attestations Medical Necessity Statement: eval for ESRD mgmt Coding Level of Care Code Acute Wire Rope Sales Representative for Tao Toro
[2020-06-12] VITALS (20 sets, daily range): BP systolic 116–268; BP diastolic 55–119; PULSE 70–86; RESP 13–21; O2SAT 91–98
[2020-06-12] MEDS: heparin 5,000 unit/mL INJ 1 mL 5000 UNIT SUBCUT
[2020-06-12] MEDS: metoprolol tartrate 50 mg Tablet 100 MG PO ×2 (02:05→10:58)
[2020-06-12] MEDS: hyDRALAzine 20 mg/mL INJ 1 mL 10 MG IVP (02:36)
[2020-06-12] MEDS: ondansetron 2 mg/ML SDV 2 mL 4 MG IVP (02:37)
[2020-06-12] MEDS: NIFEdipine 10 mg Capsule 40 MG PO (04:18)
[2020-06-12 04:59] LABS: Basophils % 0.4 %; Eosinophils # 0.1 10^3/uL (0.0-0.8); Eosinophils % 2.6 %; Hematocrit 34.8 % (37.0-47.0); Hemoglobin 11.3 g/dL (11.5-15.3); Lymphocytes # 0.7 10^3/uL (0.8-4.8); Lymphocytes % 14.2 %; Mean Corpuscular HGB Conc 32.5 g/dL (30.0-36.0); Mean Corpuscular Hemoglobin 32.4 pg (28.0-34.0); Mean Corpuscular Volume 99.7 fL (81-99); Mean Platelet Volume 9.7 fL (7.4-10.4); Monocytes # 0.4 10^3/uL (0.2-0.9); Neutrophils # 3.75 10^3/uL (1.8-7.7); Nucleated Red Blood Cells % 0 %; Platelet Count 82 10^3/cmm (130-400); Red Blood Count 3.49 10^6/uL (4.1-5.3); Red Cell Distribution Width 13.4 % (12.1-15.1)
[2020-06-12 05:24] LABS: Anion Gap 16.6 (5-19); Blood Urea Nitrogen 32 mg/dL (6-20); Calcium 8.4 mg/dL (8.5-10.5); Carbon Dioxide 27 mmol/L (22-29); Chloride 96 mmol/L (98-107); Glomerular Filtration Rate 8.3 mL/min (90-130); Glucose 98 mg/dL (65-115); Osmolality Calculated 277 mOsm/kg (285-295); Potassium 4.6 mmol/L (3.5-5.1); Sodium 135 mmol/L (136-145)
--- NOTE | 2020-06-12 06:43 | PM.PN ---
Subjective Subjective: Interval history: pt is lethargic. abd comfortable, no sob or cp. + bonilla Medications: Reviewed: Yes Medication Review Details: Current Medications Acetaminophen (Tylenol) 650 mg PO Q6H PRN PRN Reason: Mild/Mod Pain Or Temp >/= 101 Albuterol/Ipratropium (Duoneb) 3 ml INHALATION QID.RESPIRATORY PRN PRN Reason: Shortness Of Breath Heparin Sodium (Beef Lung) (Heparin) 5,000 unit SUBCUT Q12H LEW Last Admin: 06/12/20 00:00 Dose: 5,000 unit Documented by: Hydralazine HCl (Apresoline) 10 mg IVP Q4H PRN PRN Reason: HYPERTENSION Last Admin: 06/12/20 02:36 Dose: 10 mg Documented by: Metoprolol Tartrate (Lopressor) 100 mg PO BID LEW Nifedipine (Procardia Xl) 120 mg PO BEDTIME LEW Nifedipine (Procardia) 40 mg PO TID [facility] Last Admin: 06/12/20 04:18 Dose: 40 mg Documented by: Ondansetron HCl (Zofran) 4 mg IVP Q6H PRN PRN Reason: vomiting, or N/V if npo Last Admin: 06/12/20 02:37 Dose: 4 mg Documented by: Pantoprazole Sodium (Protonix) 40 mg PO DAILY LEW Sodium Bicarbonate (Sodium Bicarbonate) 650 mg PO BID LEW Vitals/I&O/Wt Last Vital Signs Temp 98.1 F 06/11/20 15:59 Pulse 70 06/12/20 06:00 Resp 17 06/12/20 06:00 BP 116/60 06/12/20 06:00 Pulse Ox 94 06/12/20 06:00 06/11/20 06/11/20 06/12/20 14:59 22:59 06:59 Intake Total 240 / 240 240 / 480 Balance 240 / 240 240 / 480 Weight last 48 hrs Weight 78.925 kg Physical Exam Narrative: EXAM NARRATIVE: comfortable in bed, NAED vss heent- nc/at, eomi, anicteric neck no jvp lung -dull bases heart reg, s1, s2, +FRANCE abd soft, ant wall hernia, + bs ext no edema RUE AVF w/ thrill and bruit neuro- lethargic pulses + b/o Data : 06/12/20 04:30 06/12/20 04:30 A&P Additional A&P Information 1. ESRD - s/p emergent HD last night- will repeat likely in am, unless being discharged then HD today - dose meds for eGFr < 15 on dialysis -monitor phos 2. Hypertension - BP now normal w/ HD and her home meds- monitor for hypotension- as she is not very compliant w/ meds at home 3. anemia- hgb okay for hd 4. hyponatremia- improves w/ HD 5. k improved w/ hD 6. cirrhosis and ascites- s/p paracentesis on 06/10/20 seen w/ RN in telehealth visit Attestations Medical Necessity Statement*: per hospitalist- k, bp improved- needs HD thrice weekly Time Spent in Patient Care: 16 - 35 minutes Coding Level of Care Code Acute Oil Burner Technician for Tao Toro
--- NOTE | 2020-06-12 10:11 | P.DS_ITS ---
Discharge Providers Date of Admission: 06/11/20 19:37 Date of Discharge: June 12, 2020 Attending Provider at Admission: Brendan Robb MD Attending Provider at Discharge: Yen Bruner MD Consults: Gerson Acuna, nephrology Primary Care Provider: Rose Marie Riojas DO Diagnoses at Discharge Discharge Diagnosis (1) Acute hyperkalemia: Status: Acute (2) End stage renal disease on dialysis: Status: Acute Reason for Visit Reason for Visit: SENT OVER BY DOCTOR Hospital Course Discharge Summary: Patient is a 59-year-old lady who presented yesterday, known CKD on dialysis Tuesday and Tuesday and COPD on home O2, presented with history of missing dialysis on Tuesday and then becoming more and more short of breath. In the ER she was also noted to have hyperkalemia with potassium 5.8. She received urgent dialysis last night. This morning she is doing well. Eager to go home. She is in fact dressed and states she wants to leave AMA if not discharged. At this present time her hemodynamics are stable. Blood pressure is 116/60, heart rate is 70, she saturating 94% on room air. She is ambulating well within the room and in the ICU. No overt respiratory distress is noted. Potassium this morning is at 5.6. Nephrology has seen her this morning and there is no plan to dialyze further today. She can get her scheduled dialysis tomorrow on Tuesday. She confirms that she has a ride to take her to this session. Given that patient is overall stable without any need for acute intervention at this present time, she is being discharged. Physical Exam Narrative: EXAM NARRATIVE: GEN: Awake, alert and oriented, no acute distress CVS: S1S2 N RS: CTA B/L Abd: Soft, distended, non tender WIRE COMMUNICATIONS ENGINEER: no focal neuro deficits Discharge Data Data Completed and Pending: Completed Studies During Hospitalization Category Date Time Status XR chest 1V apolonia ble [id number] Stat Exams 06/11/20 16:28 Completed Pending at discharge Category Date Time Status Comprehensive Met abolic Panel AM LA BS Lab 06/13/20 04:00 Ordered Comprehensive Met abolic Panel AM LA BS Lab 06/14/20 04:00 Ordered Comprehensive Met abolic Panel AM LA BS Lab 06/15/20 04:00 Ordered Magnesium AM LABS Lab 06/13/20 04:00 Ordered Magnesium AM LABS Lab 06/14/20 04:00 Ordered Magnesium AM LABS Lab 06/15/20 04:00 Ordered Phosphorus AM LAB S Lab 06/13/20 04:00 Ordered Phosphorus AM LAB S Lab 06/14/20 04:00 Ordered Phosphorus AM LAB S Lab 06/15/20 04:00 Ordered Labs from last 24 hours 06/12/20 06/12/20 06/11/20 04:30 04:30 20:00 WBC 5.0 RBC 3.49 L Hgb 11.3 L Hct 34.8 L MCV 99.7 H MCH 32.4 MCHC 32.5 RDW 13.4 Plt Count 82 L MPV 9.7 Neut % (Auto) 75.0 Lymph % (Auto) 14.2 [place] % (Auto) 7.0 Eos % (Auto) 2.6 Baso % (Auto) 0.4 Neut # (Auto) 3.75 Lymph # (Auto) 0.7 L [place] # (Auto) 0.4 Eos # (Auto) 0.1 Baso # (Auto) 0.0 Nucleated RBC % (a uto) 0 Nucleated RBCs # 0.0 Sodium 135 L 132 L Potassium 4.6 5.8 H Chloride 96 L 92 L Carbon Dioxide 27 21 L Anion Gap 16.6 24.8 H BUN 32 H 94 H* Creatinine 5.3 H 10.5 H* GFR Calculation 8.3 L 3.8 L Glucose 98 129 H Calculated Osmolal ity 277 L 276 L Calcium 8.4 L 8.5 Total Bilirubin AST ALT Alkaline Phosphata se Total Protein Albumin Globulin Urine Color Urine Appearance Urine pH Ur Specific Gravit y Urine Protein Urine Glucose (UA) Urine Ketones Urine Blood Urine Nitrate Urine Bilirubin Urine Urobilinogen Ur Leukocyte Monie ase Urine RBC Urine WBC Ur Squamous Epith Cells Amorphous Sediment Urine Bacteria 06/11/20 06/11/20 06/11/20 17:40 17:40 17:27 WBC 6.7 RBC 3.45 L Hgb 11.1 L Hct 35.0 L MCV 101.4 H MCH 32.2 MCHC 31.7 RDW 13.5 Plt Count 97 L MPV 10.1 Neut % (Auto) 73.5 Lymph % (Auto) 17.0 [place] % (Auto) 5.6 Eos % (Auto) 2.4 Baso % (Auto) 0.3 Neut # (Auto) 4.89 Lymph # (Auto) 1.1 [place] # (Auto) 0.4 Eos # (Auto) 0.2 Baso # (Auto) 0.0 Nucleated RBC % (a uto) 0 Nucleated RBCs # 0.0 Sodium 130 L Potassium 6.8 H* Chloride 93 L Carbon Dioxide 19 L Anion Gap 24.8 H BUN 93 H* D Creatinine 10.3 H* GFR Calculation 3.9 L Glucose 87 Calculated Osmolal ity 270 L Calcium 8.0 L Total Bilirubin 0.3 AST 40 H ALT 45 H Alkaline Phosphata se 153 H Total Protein 6.6 Albumin 4.0 Globulin 2.6 Urine Color Yellow Urine Appearance Clear Urine pH 8 H Ur Specific Gravit y 1.010 Urine Protein 1+ H Urine Glucose (UA) Norm Urine Ketones Negative Urine Blood Neg Urine Nitrate Negative Urine Bilirubin Neg Urine Urobilinogen Neg Ur Leukocyte Monie ase Negative Urine RBC None Urine WBC None Ur Squamous Epith Cells 0-4 H Amorphous Sediment Not Reportable Urine Bacteria Trace Vitals: Last Vital Signs Temp 98.1 F 06/11/20 15:59 Pulse 70 06/12/20 06:00 Resp 17 06/12/20 06:00 BP 116/60 06/12/20 06:00 Pulse Ox 94 06/12/20 06:00 Discharge Plan Discharge Patient Disposition: Home Condition: Stable Prescriptions: Continued sodium bicarbonate 650 mg Tablet 650 mg PO BID RF: 0 nifedipine 60 mg Tablet Extended Release 120 mg PO BEDTIME RF: 0 Zyrtec 10 mg Tablet 10 mg PO DAILY PRN (Reason: Allergy Symptoms) RF: 0 Zofran 4 mg Tablet 4 mg PO QID PRN (Reason: Nausea) RF: 0 Protonix 40 mg Tablet,Delayed Release (Dr/Ec) 40 mg PO DAILY RF: 0 hydroxyzine pamoate 25 mg capsule 25 - 50 mg PO DAILY PRN (Reason: unknown) RF: 0 Renvela 800 mg tablet 3,200 mg PO TID RF: 0 RenaPlex-D 800 mcg-12.5 mg -2,000 unit Tablet 1 tab PO DAILY RF: 0 metoprolol tartrate 100 mg Tablet 100 mg PO BID RF: 0 glucosamine sulfate [Glucosamine] 500 mg Tablet See Rx Instructions .ROUTE .COMPLEX RF: 0 ergocalciferol (vitamin D2) 1,250 mcg (50,000 unit) Capsule 1,250 mcg PO Q7D RF: 0 alpha lipoic acid 100 mg Capsule See Rx Instructions .ROUTE .COMPLEX RF: 0 ipratropium-albuterol 0.5 mg-3 mg(2.5 mg base)/3 mL solution for nebulization 3 ml inhalation QID PRN (Reason: Shortness Of Breath) RF: 0 Discharge Orders: Discharge Order (Routine); Ordered 06/12/20 Ordered By: Yen Bruner Referrals: Rose Marie Riojas DO [Primary Care Provider] - Discharge Diet: Usual diet Discharge Activity: Resume usual activity Discharge Attestations Time Spent in Discharge Care*: less than 30 min Quality Metrics Clinical Quality Measures During this hospital stay, did patient experience: None Coding Level of Care Code Acute Dyslexia Teacher for Tao Toro Diagnoses Acute hyperkalemia E87.5 End stage renal disease on dialysis N18.6; Z99.2
[2020-06-12] MEDS: pantoprazole DR 40 mg Tablet PO (10:21)
--- NOTE | 2020-06-13 18:57 | PC.RESP ---
PULMONARY REHAB INFORMATION SENT TO PATIENT.
== END 2020-06-12 10:40 | disposition home or self-care (01) | DRG 640 ==
LOC: ER 18:41 → ICU 06-12 08:10
PROVIDERS: Emergency Medicine; Family Medicine; Admitting Provider Internal Medicine; PCP Family Medicine; Visit Provider Student in an Organized Health Care Education/Training Program
DX: E87.5 Hyperkalemia (principal); N18.6 End stage renal disease; R18.8 Other ascites; I12.0 Hypertensive chronic kidney disease with stage 5 chronic kidney disease or end stage renal disease; Z99.2 Dependence on renal dialysis; J44.9 Chronic obstructive pulmonary disease, unspecified; K74.60 Unspecified cirrhosis of liver; E87.1 Hypo-osmolality and hyponatremia; Z99.81 Dependence on supplemental oxygen; Z91.15 Patient's noncompliance with renal dialysis; F41.8 Other specified anxiety disorders; I25.10 Atherosclerotic heart disease of native coronary artery without angina pectoris; K21.9 Gastro-esophageal reflux disease without esophagitis; B18.2 Chronic viral hepatitis C; Z87.891 Personal history of nicotine dependence
CPT/HCPCS: 12345; 36415; 36592; 49083; 71045; 80048; 80053; 81001; 85025; 93005; 94640; 96365; 96372; 96374; 96375; 99283; 99285; J0360; J0610; J1642; J1644; J1815; J1940; J2405; J7611; P9047; Q3014

== ENCOUNTER 2020-09-15 10:15 | Emergency (ER) | payer MEDICARE, MEDICAID, SELFPAY ==
[2020-09-15 10:16] VITALS: BP 178/81; PULSE 89; RESP 16; TEMP 36.7; O2SAT 96; BMI 29.2
[2020-09-15 10:24] VITALS: BP 160/86; PULSE 92; RESP 14; O2SAT 97
--- NOTE | 2020-09-15 10:26 | XR_ITS ---
WS: [id number] XR chest 1V portable [id number] REASON FOR EXAM: syncope FINDINGS: Compared to the previous examination, there has been enlargement of the previously noted small right pleural effusion. Cannot exclude infiltrative process in right lower lung obscured by the pleural flu id. Minimal blunting of the left costophrenic angle. No other infiltrative processes identified. The chemotherapy infusion port remains in proper position. XR/XR chest 1V portable [id number] IMPRESSION: Enlarging right pleural effusion. Possible infiltrate right lower lung. Possibl e small left pleural effusion.
--- NOTE | 2020-09-15 10:26 | CT_ITS ---
WS: [id number] CT HEAD TECHNIQUE: Noncontrast CT of the head obtained from the skullbase to the vertex. CLINICAL INFORMATION: confusion COMPARISON: None. DLP: 753.[address] scans at [facility] use at least one of these dose optimization techniques: automat ed exposure control; mA and/or kV adjustment per patient size (includes targeted exams where dose is matched to clinical indication); or iterative reconstruction. FINDINGS: No evidence of intracranial hemorrhage or mass effect. Ventricular system and basal cisterns are merritt nt. Mild small vessel changes with mild parenchymal volume loss. Chronic lacunar infarct left caudate . No extra-axial fluid collections. No evidence of mass or mass effect. Chronic encephalomalacia in t he parasagittal inferior frontal lobes bilaterally likely due to prior trauma. Paranasal sinuses are well aerated. Chronic appearing depressed left maxillary sinus fracture. Mild m ucosal thickening right mastoid tip. Mastoid air cells are otherwise well aerated. CT/CT head wo con* [id number] IMPRESSION: 1. No evidence of intracranial hemorrhage or mass effect. 2. Mild small vessel changes with mild parenchymal volume loss. 3. Chronic lacunar infarct left caudate. 4. Chronic appearing left maxillary sinus fracture with depression. 5. No acute intracranial findings.
--- NOTE | 2020-09-15 10:27 | W.ED.AMS ---
HPI - Altered Mental Status General: Chief Complaint: Altered Mental Status Stated Complaint: increased confusion/ hypertensive Time Seen by Provider: 09/15/20 10:25 Source: patient and EMS Mode of arrival: EMS History of Present Illness: HPI narrative: 60-year-old female patient presents to the emergency department with altered mental status. She was at dialysis, dialysis treatment nearly completed when she developed hypertension, systolic blood pressure 218, and confusion. Dialysis called 911 to have patient brought to the ER for evaluation. EMS crew reports she was alert and oriented x4 during transport. Dialysis staff administered 0.1 clonidine orally prior to transport. History of ascites, last paracentesis June 2020. complaint: altered mental status, confusion and decreased responsiveness Onset (ago): hour(s) (0.5) Time: 09:45 Timing confirmed by: caregiver (dialysis staff) Severity: moderate Context: history of similar presentation Associated symptoms: Reports other (AMS) Review of Systems General: Reports: 10 or more systems reviewed and unremarkable except in HPI and below Const: Reports: fatigue and malaise; Denies: fever(s), chills or diaphoresis Eyes: Denies: blurry vision or eye redness ENMT: Denies: throat pain, dental pain or disequilibrium Card: Denies: chest pain, palpitations or irregular heart rhythm Resp: Denies: dyspnea, productive cough, non-productive cough or wheezing GI: Denies: abdominal pain, nausea or vomiting : Denies: difficulty voiding or dysuria Musc: Denies: back pain Skin/Breast: Denies: rash or pruritus Neuro: Reports: weakness in extremities, confusion and other; Denies: headache(s) or behavioral changes Lc/Lymph: Denies: easy bruising PFSH ED PFSH: Medical History (Updated 06/13/20 @ 00:02 by ) Anxiety and depression Arteriovenous fistula for hemodialysis in place, primary Ascites CAD (coronary artery disease) COPD (chronic obstructive pulmonary disease) End stage renal disease on dialysis GERD (gastroesophageal reflux disease) Hep C w/o coma, chronic Hepatic cirrhosis Hepatitis C History of abdominal paracentesis Liver cirrhosis Surgical History H/O: hysterectomy Family History Other CAD (coronary artery disease) Diabetes Social History (Updated 06/11/20 @ 20:10 by Brendan Robb MD) Smoking and tobacco status: former smoker Alcohol intake: never Physical Exam Const: COMMON NORMALS: no acute distress, patient oriented x3 and alert GENERAL APPEARANCE: cooperative, comfortable, lethargic and appears older than stated age NUTRITIONAL APPEARANCE: overweight ORIENTATION/CONSCIOUSNESS: Yes awake, Yes oriented to person, Yes oriented to place, Yes oriented to time and Yes lethargic HENMT: COMMON NORMALS: normocephalic, atraumatic, Normal external nose present and moist oral mucous membranes HEAD & SCALP: normocephalic and atraumatic FACE & SINUS: normal facial exam and face symmetric NOSE: Normal external nose present Eye: COMMON NORMALS: Equal, round and reactive pupils present and EOMs intact bilaterally GENERAL EYE: appearance normal, both eyes and all related structures EYELID: eyelids normal PUPIL: Yes Equal, round and reactive pupils present Neck/C-Spine: COMMON NORMALS: full ROM, no lymphadenopathy and no meningeal signs GENERAL: Yes normal visual inspection and Yes trachea midline CERVICAL SPINE: Yes cervical ROM normal Lymph: LYMPHATIC: no lymphadenopathy noted Chest: COMMONS NORMALS: normal inspection of the chest and normal palpation of entire chest wall (port a cath to left anterior chest wall) Resp: COMMON NORMALS: normal respiratory effort and clear to auscultation bilaterally EFFORT & INSPECTION: Yes able to speak in complete sentences AUSCULTATION: clear to auscultation bilaterally and diminished lung sounds bilateral in the lower lung lara (bases) Cardio: COMMON NORMALS: regular rhythm, S1 normal heart sound present, S2 normal heart sound present and Peripheral pulses 2+ throughout RHYTHM: regular rhythm HEART SOUNDS: S1 normal heart sound present and S2 normal heart sound present PERIPHERAL PULSES: Peripheral pulses 2+ throughout GI: COMMON NORMALS: Normal to inspection, nondistended, normoactive bowel sounds present, Soft to palpation and non-tender INSPECTION: Yes normal to inspection PALPATION: Yes Soft to palpation : COMMON NORMALS: Yes no CVA tenderness BLADDER/KIDNEY EXAM: Yes no CVA tenderness Back/Pelvis: COMMON NORMALS: no CVA tenderness and thoracic and lumbar spine normal to inspection Extremity: COMMON NORMALS: normal to inspection and capillary refill normal GENERAL: Yes normal exam except as noted OTHER: tesio rt upper arm Neuro: JUAN C COMA SCALE: document GCS findings Juan C coma scale eye opening: Spontaneous [place] coma scale verbal response: Orientated Juan C coma scale motor response: Obey commands [place] coma scale total score: 15 COMMON NORMALS: patient oriented x3, moves all extremities and no focal motor deficits SENSORIUM/ORIENTATION: Yes alert, Yes oriented to person, Yes oriented to place, Yes oriented to time and Yes lethargic MENINGEAL SIGNS: Yes no meningeal signs SPEECH: speech normal GAIT: Yes Unable to assess gait MOTOR EXAM: Abnormal motor strength present (3/5 x 4 - weakness present) Psych: COMMON NORMALS: cooperative and speech normal ATTITUDE: Yes calm ACTIVITY/MOTOR BEHAVIOR: Yes appropriate eye contact SPEECH: Yes normal speech Skin: COMMON NORMALS: no rashes or lesions noted and turgor normal GENERAL SKIN EXAM: no rashes or lesions noted and turgor normal Course ED course: 60-year-old female patient presents to the emergency department via EMS due to confusion and hypertensive episode, 0.1 clonidine administered prior to transport to the ED. She was lethargic, she was alert and oriented x4, appeared sleepy, answers questions appropriately, generalized weakness present, patient called her family she can get her, she did not wish to stay, AMA form completed, she was counseled she can if she left the emergency department due to incomplete testing, abnormal serology findings and current condition of weakness. She verbalized understanding and wishes to leave despite my warning. She reports will follow up with her primary care provider or go to [facility] where she lives, she refused further care, she discontinued her Port-A-Cath to the left upper chest wall herself. Vital Signs: Vital signs: Vital Signs Temperature 98.1 F 09/15/20 10:16 Pulse Rate 80 09/15/20 12:18 Respiratory Rate 15 09/15/20 12:18 Blood Pressure 165/82 09/15/20 12:18 Pulse Oximetry 95 09/15/20 12:18 MDM - Altered Mental Status Lab Data: Labs: Lab Results 09/15/20 09/15/20 09/15/20 Range/Units 10:35 10:45 10:45 WBC 5.3 (4.0-10.0) 10^3/ uL RBC 3.17 L (4.1-5.3) 10^6/u L Hgb 10.7 L (11.5-15.3) g/dL Hct 30.1 L (37.0-47.0) % MCV 95.0 (81-99) fL MCH 33.8 (28.0-34.0) pg MCHC 35.5 (30.0-36.0) g/dL RDW 12.6 (12.1-15.1) % Plt Count 124 L (130-400) 10^3/c mm MPV 10.5 H (7.4-10.4) fL Neut % (Auto) 73.3 % Lymph % (Auto) 16.5 % [place] % (Auto) 7.7 % Eos % (Auto) 1.3 % Baso % (Auto) 0.6 % Neut # (Auto) 3.90 (1.8-7.7) 10^3/u L Lymph # (Auto) 0.9 (0.8-4.8) 10^3/u L [place] # (Auto) 0.4 (0.2-0.9) 10^3/u L Eos # (Auto) 0.1 (0.0-0.8) 10^3/u L Baso # (Auto) 0.0 (0.0-0.1) 10^3/u L Nucleated RBC % (a uto) 0 % Nucleated RBCs # 0.0 /100WBC Sodium 130 L (136-145) mmol/L Potassium 4.7 (3.5-5.1) mmol/L Chloride 87 L (98-107) mmol/L Carbon Dioxide 24 (22-29) mmol/L Anion Gap 23.7 H (5-19) BUN 54 H (6-20) mg/dL Creatinine 6.0 H* (0.5-0.9) mg/dL GFR Calculation 7.2 L (90-130) mL/min Glucose 76 (65-115) mg/dL POC Glucose 86 (70-110) mg/dL Calculated Osmolal ity 284 L (285-295) mOsm/k g Lactate (0.5-2.2) mmol/L Calcium 8.7 (8.5-10.5) mg/dL Total Bilirubin 0.4 (0.15-1.2) mg/dL AST 51 H (0-32) U/L ALT 47 H (0-33) U/L Alkaline Phosphata se 93 (35-105) IU/L Ammonia (11-51) umol/L Troponin T Baselin e (0-10) ng/L Total Protein 7.1 (6.6-8.7) g/dL Albumin 3.9 (3.5-5.2) g/dL Globulin 3.2 (1.3-4.6) g/dL 09/15/20 09/15/20 09/15/20 Range/Units 10:45 10:45 11:19 WBC (4.0-10.0) 10^3/ uL RBC (4.1-5.3) 10^6/u L Hgb (11.5-15.3) g/dL Hct (37.0-47.0) % MCV (81-99) fL MCH (28.0-34.0) pg MCHC (30.0-36.0) g/dL RDW (12.1-15.1) % Plt Count (130-400) 10^3/c mm MPV (7.4-10.4) fL Neut % (Auto) % Lymph % (Auto) % [place] % (Auto) % Eos % (Auto) % Baso % (Auto) % Neut # (Auto) (1.8-7.7) 10^3/u L Lymph # (Auto) (0.8-4.8) 10^3/u L [place] # (Auto) (0.2-0.9) 10^3/u L Eos # (Auto) (0.0-0.8) 10^3/u L Baso # (Auto) (0.0-0.1) 10^3/u L Nucleated RBC % (a uto) % Nucleated RBCs # /100WBC Sodium (136-145) mmol/L Potassium (3.5-5.1) mmol/L Chloride (98-107) mmol/L Carbon Dioxide (22-29) mmol/L Anion Gap (5-19) BUN (6-20) mg/dL Creatinine (0.5-0.9) mg/dL GFR Calculation (90-130) mL/min Glucose (65-115) mg/dL POC Glucose (70-110) mg/dL Calculated Osmolal ity (285-295) mOsm/k g Lactate 0.9 (0.5-2.2) mmol/L Calcium (8.5-10.5) mg/dL Total Bilirubin (0.15-1.2) mg/dL AST (0-32) U/L ALT (0-33) U/L Alkaline Phosphata se (35-105) IU/L Ammonia 22 (11-51) umol/L Troponin T Baselin e 73 H (0-10) ng/L Total Protein (6.6-8.7) g/dL Albumin (3.5-5.2) g/dL Globulin (1.3-4.6) g/dL Imaging Data^: CXR: Radiologist's impression: [place] [address] XRay Report Signed Patient: Manasa Monreal Unit #: [id number] : 1960 Age/Sex: 60 / F ADM Date: 09/15/20 Loc: ER Room/Bed: Attending Dr: Ordering Provider/Ordering MD: Leticia Almanzar Date of Service: 09/15/20 Procedure(s): XR chest 1V portable [id number] Accession Number(s): [id number] Report Number: [id number] WS: [id number] XR chest 1V portable [id number] REASON FOR EXAM: syncope FINDINGS: Compared to the previous examination, there has been enlargement of the previously noted small right pleural effusion. Cannot exclude infiltrative process in right lower lung obscured by the pleural fluid. Minimal blunting of the left costophrenic angle. No other infiltrative processes identified. The chemotherapy infusion port remains in proper position. XR/XR chest 1V portable [id number] IMPRESSION: Enlarging right pleural effusion. Possible infiltrate right lower lung. Possible small left pleural effusion. Dictated By: Sanchez Hinojosa Jr, MD Signed By: Sanchez Hinojosa Jr, MD Signed Date/Time: 09/15/[address] Head: Radiologist's impression: [address] [address] [address] Scan Report Signed Patient: Manasa Monreal Unit #: [id number] : 1960 Age/Sex: 60 / F ADM Date: 09/15/20 Loc: ER Room/Bed: Attending Dr: Ordering Provider/Ordering MD: Leticia Almanzar Date of Service: 09/15/20 Procedure(s): CT head wo con* [id number] Accession Number(s): [id number] Report Number: [id number] WS: [id number] CT HEAD TECHNIQUE: Noncontrast CT of the head obtained from the skullbase to the vertex. CLINICAL INFORMATION: confusion COMPARISON: None. DLP: 753.[address] scans at [facility] use at least one of these dose optimization techniques: automated exposure control; mA and/or kV adjustment per patient size (includes targeted exams where dose is matched to clinical indication); or iterative reconstruction. FINDINGS: No evidence of intracranial hemorrhage or mass effect. Ventricular system and basal cisterns are patent. Mild small vessel changes with mild parenchymal volume loss. Chronic lacunar infarct left caudate. No extra-axial fluid collections. No evidence of mass or mass effect. Chronic encephalomalacia in the parasagittal inferior frontal lobes bilaterally likely due to prior trauma. Paranasal sinuses are well aerated. Chronic appearing depressed left maxillary sinus fracture. Mild mucosal thickening right mastoid tip. Mastoid air cells are otherwise well aerated. CT/CT head wo con* [id number] IMPRESSION: 1. No evidence of intracranial hemorrhage or mass effect. 2. Mild small vessel changes with mild parenchymal volume loss. 3. Chronic lacunar infarct left caudate. 4. Chronic appearing left maxillary sinus fracture with depression. 5. No acute intracranial findings. Dictated By: Edgar Ramirez MD Signed By: Edgar Ramirez MD Signed Date/Time: 09/15/20 1200 DD/ 1152 EKG Data^: EKG 1: EKG interpretation date: 09/15/20 EKG interpretation time: 10:48 Computer generated interpretation: Sinus rhythm, right bundle branch block, abnormal ECG Discharge Plan Discharge Patient Disposition: Left Against Medical Advice Prescriptions: No Action sodium bicarbonate 650 mg Tablet 650 mg PO BID RF: 0 nifedipine 60 mg Tablet Extended Release 120 mg PO BEDTIME RF: 0 Zyrtec 10 mg Tablet 10 mg PO DAILY PRN (Reason: Allergy Symptoms) RF: 0 Zofran 4 mg Tablet 4 mg PO QID PRN (Reason: Nausea) RF: 0 Protonix 40 mg Tablet,Delayed Release (Dr/Ec) 40 mg PO DAILY RF: 0 hydroxyzine pamoate 25 mg capsule 25 - 50 mg PO DAILY PRN (Reason: unknown) RF: 0 Renvela 800 mg tablet 3,200 mg PO TID RF: 0 RenaPlex-D 800 mcg-12.5 mg -2,000 unit Tablet 1 tab PO DAILY RF: 0 metoprolol tartrate 100 mg Tablet 100 mg PO BID RF: 0 glucosamine sulfate [Glucosamine] 500 mg Tablet See Rx Instructions .ROUTE .COMPLEX RF: 0 ergocalciferol (vitamin D2) 1,250 mcg (50,000 unit) Capsule 1,250 mcg PO Q7D RF: 0 alpha lipoic acid 100 mg Capsule See Rx Instructions .ROUTE .COMPLEX RF: 0 ipratropium-albuterol 0.5 mg-3 mg(2.5 mg base)/3 mL solution for nebulization 3 ml inhalation QID PRN (Reason: Shortness Of Breath) RF: 0 Referrals: Rose Marie Riojas DO [Primary Care Provider] - Coding Level of Care Code ED Fur Tanner for Chg Fwd Exam Comprehensive
[2020-09-15 10:30] VITALS: BP 178/82; PULSE 92; RESP 16; O2SAT 94
[2020-09-15 10:52] LABS: Glucose Point of Care 86 mg/dL (70-110)
--- NOTE | 2020-09-15 10:59 | US_ITS ---
WS: [id number] ULTRASOUND ABDOMEN LIMITED CLINICAL INFORMATION: ascities COMPARISON: None. FINDINGS: Four-quadrant ultrasound for ascites assessment. Very small volume ascites. No other abnorm alities. US/US abdomen limited [id number] IMPRESSION: Very small volume ascites.
[2020-09-15 11:08] LABS: Basophils % 0.6 %; Eosinophils # 0.1 10^3/uL (0.0-0.8); Eosinophils % 1.3 %; Hematocrit 30.1 % (37.0-47.0); Hemoglobin 10.7 g/dL (11.5-15.3); Lymphocytes # 0.9 10^3/uL (0.8-4.8); Lymphocytes % 16.5 %; Mean Corpuscular HGB Conc 35.5 g/dL (30.0-36.0); Mean Corpuscular Hemoglobin 33.8 pg (28.0-34.0); Mean Platelet Volume 10.5 fL (7.4-10.4); Monocytes # 0.4 10^3/uL (0.2-0.9); Monocytes % 7.7 %; Neutrophils % 73.3 %; Nucleated Red Blood Cells % 0 %; Platelet Count 124 10^3/cmm (130-400); Red Blood Count 3.17 10^6/uL (4.1-5.3); Red Cell Distribution Width 12.6 % (12.1-15.1); White Blood Count 5.3 10^3/uL (4.0-10.0)
[2020-09-15 11:27] LABS: Lactate (Lactic Acid level) 0.9 mmol/L (0.5-2.2)
[2020-09-15 11:28] LABS: Alanine Aminotransferase 47 U/L (0-33); Albumin Level 3.9 g/dL (3.5-5.2); Alkaline Phosphatase 93 IU/L (35-105); Anion Gap 23.7 (5-19); Aspartate Amino Transferase 51 U/L (0-32); Blood Urea Nitrogen 54 mg/dL (6-20); Calcium 8.7 mg/dL (8.5-10.5); Carbon Dioxide 24 mmol/L (22-29); Chloride 87 mmol/L (98-107); Globulin 3.2 g/dL (1.3-4.6); Glomerular Filtration Rate 7.2 mL/min (90-130); Glucose 76 mg/dL (65-115); Osmolality Calculated 284 mOsm/kg (285-295); Potassium 4.7 mmol/L (3.5-5.1); Sodium 130 mmol/L (136-145); Total Bilirubin 0.4 mg/dL (0.15-1.2); Total Protein 7.1 g/dL (6.6-8.7)
[2020-09-15 11:30] LABS: Troponin(5th) Baseline 73 ng/L (0-10)
[2020-09-15 11:34] VITALS: BP 165/82; PULSE 80; RESP 14; O2SAT 95
--- NOTE | 2020-09-15 11:35 | PC.NURSE ---
Pt to CT
[2020-09-15 11:42] LABS: Ammonia 22 umol/L (11-51)
--- NOTE | 2020-09-15 12:13 | PC.NURSE ---
Patient found walking down hallway heading out of the building. The patient was returned to the room. Patient insisted on leaving. She was asked numerous questions which she answered correctly. EMD and INSTRUCTOR TRAINER CANINE SERVICE at bedside to advise the patient about the dangers of leaving without completion of care. She verbalized understanding and again insisted on leaving. See paper AMA signed and scanned to chart. Patient placed in wheelchair and placed in waiting room. She will arrange her own ride.
[2020-09-15 12:18] VITALS: BP 165/82; PULSE 80; RESP 15; O2SAT 95
--- NOTE | 2020-09-15 12:26 | ECG_ITS ---
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 Measurements Intervals [place] Rate: 83 P: 60 VT: 166 QRS: 95 QRSD: 144 T: 58 QT: 453 QTc: 533 Interpretive Statements SINUS RHYTHM RIGHT BUNDLE BRANCH BLOCK [120+ ms QRS DURATION, UPRIGHT V1, 40+ ms S IN I/aVL/V4/V5/V6] Compared to ECG 06/11/2020 19:16:49 No significant changes Electronically Signed On 09-15-2020 18:54:18 SOFTWARE QUALITY ASSURANCE SPECIALIST by Zita Cristobal M.D. [email or web address]
== END 2020-09-15 12:18 | disposition left against medical advice (07) ==
PROVIDERS: Emergency Provider Nurse Practitioner Family; PCP Family Medicine
DX: R41.82 Altered mental status, unspecified (principal); Z53.21 Procedure and treatment not carried out due to patient leaving prior to being seen by health care provider; I25.10 Atherosclerotic heart disease of native coronary artery without angina pectoris; J44.9 Chronic obstructive pulmonary disease, unspecified; N18.6 End stage renal disease; Z99.2 Dependence on renal dialysis; Z86.19 Personal history of other infectious and parasitic diseases; Z87.891 Personal history of nicotine dependence
CPT/HCPCS: 12345; 36416; 36591; 70450; 71045; 76705; 80053; 82140; 82962; 83605; 84484; 85025; 87040; 93005; 96365; 99282; 99284